=== PATIENT | female | born 1940 | race Caucasian/White ===

== ENCOUNTER 2018-08-28 10:07 | Emergency (ER) | payer MEDICARE, SELFPAY ==
[2018-08-28 10:08] VITALS: BP 130/68; PULSE 101; RESP 16; TEMP 36.2; O2SAT 93; BMI 45.7
--- NOTE | 2018-08-28 10:49 | ED.VISSUMM ---
- ER Visit Summary Date of Service: 08/28/18 Chief Complaint: [] Generalized weakness diabetes blindness History of Present Illness: The patient is a 78 F [] patient is a resident of [facility] she has the above and other chronic medical conditions, she is basically a full care patient at the nursing center. She got yesterday to her lifelong friend and wanted to check out of the nursing center so she could basically participate in marriage festivities, today the family basically could not manage her because of her generalized whole body weakness she slid out of the bed to her bottom paramedics were called the family could not get her back to the nursing center on there own and paramedics felt she should come to the hospital but the patient has no complaints and simply wants to be sent back to the nursing center she indicates her bed is still therefore her as she was discharged from that facility on a trial basis She has no complaints other than her chronic whole body weakness Physical Examination: [] Pressure is 160/82 she is resting comfortably in the bed her is very confirms a history her vital signs are within normal range blind she has no head neck chest upper lower extremity trauma she is moving all 4 extremities complains of chronic knee pain she indicates she did not injure herself when she slid out of bed her confirms she is at her baseline and again they want no evaluation from the emergency department just assistance getting back to the nursing center, I spoke with the nursing center they are expected her back and they are happy to assume her care Test Results: [] Emergency Department Course and Treatment: [] Treatment Plan: [] Disposition: [] Transfer back to [facility] Impression: [] Generalized whole body weakness, diabetes and blindness This note was generated with [employer] dictation software. It may contain incorrect words, spelling, and punctuation that were not noted in review of the chart prior to signing ED Disposition - Plan for ED Patient: Chief Complaint: Fall Referrals: Abrahan Robins DO [Primary Care Provider] -
--- NOTE | 2018-08-28 10:52 | ED.DCSUM_ITS ---
- ER Visit Summary Date of Service: 08/28/18 Chief Complaint: [] Generalized weakness diabetes blindness History of Present Illness: The patient is a 78 F [] patient is a resident of [facility] she has the above and other chronic medical conditions, she is basically a full care patient at the nursing center. She got yesterday to her lifelong friend and wanted to check out of the nursing center so she could basically participate in marriage festivities, today the family basically could not manage her because of her generalized whole body weakness she slid out of the bed to her bottom paramedics were called the family could not get her back to the nursing center on there own and paramedics felt she should come to the hospital but the patient has no complaints and simply wants to be sent back to the nursing center she indicates her bed is still therefore her as she was discharged from that facility on a trial basis She has no complaints other than her chronic whole body weakness Physical Examination: [] Pressure is 160/82 she is resting comfortably in the bed her is very confirms a history her vital signs are within normal range blind she has no head neck chest upper lower extremity trauma she is moving all 4 extremities complains of chronic knee pain she indicates she did not injure herself when she slid out of bed her confirms she is at her baseline and again they want no evaluation from the emergency department just assistance getting back to the nursing center, I spoke with the nursing center they are expected her back and they are happy to assume her care Test Results: [] Emergency Department Course and Treatment: [] Treatment Plan: [] Disposition: [] Transfer back to [facility] Impression: [] Generalized whole body weakness, diabetes and blindness This note was generated with [employer] dictation software. It may contain incorrect words, spelling, and punctuation that were not noted in review of the chart prior to signing ED Disposition - Plan for ED Patient: Chief Complaint: Fall Referrals: Abrahan Robins DO [Primary Care Provider] -
--- NOTE | 2018-08-28 10:52 | ED.DEP ---
ED Disposition - Plan for ED Patient: Chief Complaint: Fall Instructions: ED Fall Uncertain Cause, ED Mechanical Fall Referrals: Abrahan Robins DO [Primary Care Provider] -
== END 2018-08-28 11:37 | disposition home or self-care (01) ==
PROVIDERS: Emergency Provider Emergency Medicine; Family Provider Preventive Medicine Occupational Medicine; PCP Preventive Medicine Occupational Medicine
DX: R53.1 Weakness (principal); E11.9 Type 2 diabetes mellitus without complications; H54.7 Unspecified visual loss
CPT/HCPCS: 99284

== ENCOUNTER → 2020-01-24 17:37 | Outpatient (REF) | payer MEDICARE, MEDICAID, SELFPAY | LOC: MTDU 17:37 | PROVIDERS: PCP Preventive Medicine Occupational Medicine; Referring Provider Family Medicine; Visit Provider Family Medicine | DX: Z11.59 Encounter for screening for other viral diseases (principal) | CPT/HCPCS: 87635; U0004 ==

== ENCOUNTER → 2020-02-19 16:35 | Outpatient (CLI) | payer MEDICARE, MEDICAID, SELFPAY | PROVIDERS: PCP Preventive Medicine Occupational Medicine; Referring Provider Family Medicine; Visit Provider Family Medicine | DX: J98.8 Other specified respiratory disorders (principal) | CPT/HCPCS: 87635; U0004 ==

== ENCOUNTER 2020-02-21 23:47 | Emergency (ER) | payer MEDICARE, MEDICAID, SELFPAY ==
[2020-02-21 23:49] VITALS: BP 122/77; PULSE 99; RESP 13; TEMP 35.9; O2SAT 97; BMI 39.2
[2020-02-22 00:17] LABS: Absolute Lymphocyte Count 1.69 X10^3/uL (0.83-4.51); Absolute Neutrophil Count 3.5 X10^3/uL (2.0-7.7); Basophil# 0.04 X10^3/uL; Basophil% 0.6 % (0-1); Eosinophil# 0.69 X10^3/uL; Eosinophils% 9.8 % (0-5); Hematocrit 44.7 % (37-47); Hemoglobin 14.3 g/dL (12.0-15.0); Lymphocyte # 1.69 X10^3/ul (4.0); Lymphocyte % 24.1 % (19-41); Mean Corpuscular Hgb 30.8 pg (27.0-32.0); Mean Corpuscular Volume 96.3 fL (81-99); Monocyte# 1.04 X10^3/uL; Monocyte% 14.8 % (0-10); NRBC Flagged by Analyzer 0 % (0-5); Neutrophil # 3.54 X10^3/uL (2.7-7.7); Neutrophil % 50.6 % (47-70); Platelet Count 272 K/mm3 (150-450); RBC Distribution Width CV 13.8 % (11.6-14.6); RBC Distribution Width SD 47.8 fl (35.1-43.9); Red Blood Count 4.64 M/mm3 (4.2-5.4)
--- NOTE | 2020-02-22 00:22 | ED.RN ---
CALLED, UPDATE GIVEN TO HIM.
[2020-02-22 00:36] LABS: ALB/GLOB Ratio 0.6 RATIO (0.9-2.4); AST(SGOT) 39 U/L (15-37); Alanine Aminotransfer ALT/SGPT 22 U/L (13-56); Albumin, Serum 3.1 g/dL (3.2-5.0); Alkaline Phosphatase 97 U/L (45-117); Anion Gap 6 (5-15); BUN 80 mg/dL (7-18); Calcium,Total 9.8 mg/dL (8.5-10.1); Chloride 103 mmol/L (98-107); Creatinine, Serum 3.48 mg/dL (0.55-1.02); EST Glomerular Filtration Rate 13 mL/min (>60); Est Glom Filt Rate - Afr Amer 16 mL/min (>60); Estimated Creatinine Clearance 11.32 ml/min; Globulin 5.4 g/dL (2.2-4.2); Glucose 136 mg/dL (74-106); Potassium 5.4 mmol/L (3.5-5.1); Protein, Total 8.5 g/dL (6.4-8.2); Sodium Level 137 mmol/L (136-145)
--- NOTE | 2020-02-22 00:40 | ED.DCSUM_ITS ---
- ER Visit Summary Date of Service: 02/22/20 Chief Complaint: Elevated creatinine History of Present Illness: The patient is a [address] Drew Husain. Patient is a DNR comfort care only. She was diagnosed with COVID-January 29. They deloris blood work today and found that her creatinine was 3.4 her BUN was 80. She does have a history of chronic renal insufficiency and has been on Bumex. They were unable to place an IV at [facility] [place]. Patient denies any complaints. She denies chest pain or shortness of breath. She denies fever or cough. She is resting comfortably. Physical Examination: Vitals: 96.6, 122/77, 99, 13, 97% on room air which is not hypoxic. General: Well-nourished and well-developed. Head: Normocephalic atraumatic. Neck: Supple, no lymphadenopathy. No JVD. Nontender. Cardiovascular: Regular rate and rhythm. 2 out of 6 systolic murmur. Respiratory: No respiratory distress. Clear to auscultation bilaterally. Abdominal: Soft, nontender, nondistended, normal bowel sounds. No guarding, rebound, or peritoneal signs. Back: Nontender. Extremities: Nontender, 1+ edema lower extremities bilaterally. Skin: Normal color, no rash. Neurologic: Alert and oriented ?3. Cranial nerves II through XII are intact. Normal strength and sensation. Psych: Normal affect. Test Results: CBC shows monocytes of 15 and eosinophils of 10. Chem-7 shows a potassium of 5.4 (moderate hemolysis), glucose 136, BUN 80, creatinine at 3.48. Emergency Department Course and Treatment: Patient was given a 500 cc bolus of normal saline. She is resting comfortably and asking when she can go back to [facility] [place]. Treatment Plan: The patient was discussed with her daughter who is power of county attorney. She is happy with the plan of her going back to [facility] [place] IV fluids. She was discussed with Vianney, the nurse practitioner for Dr. Husain, who agrees with this plan. She will write for maintenance fluids there and hold her Bumex. Return to the emergency department for any worsening symptoms. Disposition: To home in improved and stable condition. Impression: 1. Acute renal insufficiency. 2. DNR comfort care only. 3. COVID-19 + January 30, 2020. This note was generated with Dragon dictation software. It may contain incorrect words, spelling, and punctuation that were not noted in review of the chart prio r to signing ED Disposition - Plan for ED Patient: Instructions: ED Insufficiency Renal Referrals: Drew Hammonds MD [Primary Care Provider] - 1-2 Days if not improving
[2020-02-22 00:53] VITALS: BP 117/74; PULSE 100; RESP 16; O2SAT 97
--- NOTE | 2020-02-22 00:54 | ED.RN ---
DR HERNANDEZ SPOKE WITH DTR DAFNE WITH UPDATE ON PT.
== END 2020-02-22 01:18 ==
LOC: ED 02-22 00:23
PROVIDERS: Emergency Provider Emergency Medicine; PCP Family Medicine
DX: E11.22 Type 2 diabetes mellitus with diabetic chronic kidney disease (principal); N18.9 Chronic kidney disease, unspecified; U07.1 COVID-19; I25.10 Atherosclerotic heart disease of native coronary artery without angina pectoris; E78.00 Pure hypercholesterolemia, unspecified; E86.0 Dehydration; N17.9 Acute kidney failure, unspecified; N39.0 Urinary tract infection, site not specified; F32.9 Major depressive disorder, single episode, unspecified; I11.0 Hypertensive heart disease with heart failure; I50.9 Heart failure, unspecified; Z79.4 Long term (current) use of insulin; Z79.82 Long term (current) use of aspirin; Z66 Do not resuscitate
CPT/HCPCS: 36415; 80053; 81001; 83605; 84484; 85025; 87040; 87077; 87086; 87088; 87186; 93005; 96361; 96365; 96366; 99285; J7030; J7040; A4216

== ENCOUNTER 2020-02-22 10:10 | Emergency (ER) | payer MEDICARE, MEDICAID, SELFPAY ==
[2020-02-21 23:49] VITALS: BMI 39.2
[2020-02-22 10:11] VITALS: BP 144/69; PULSE 93; RESP 24; TEMP 36; O2SAT 94; BMI 39.2
--- NOTE | 2020-02-22 10:23 | EKG12_ITS ---
Test Reason : Blood Pressure : / mmHG Vent. Rate : 093 BPM Atrial Rate : 093 BPM P-R Int : 140 ms QRS Dur : 120 ms QT Int : 400 ms P-R-T Axes : 063 017 176 degrees QTc Int : 497 ms Normal sinus rhythm ST & T wave abnormality, consider inferior ischemia Abnormal ECG Confirmed by JEFERSON VELEZ ([id number]), editorial specialist PAM CARNEY ([id number]) on 02/26/2020 1:20:32 PM Referred By: SUMAN/FAWN Confirmed By:JEFERSON VELEZ
--- NOTE | 2020-02-22 10:29 | ED.VISSUMM ---
- ER Visit Summary Date of Service: 02/22/20 Chief Complaint: Dehydration and bilateral ankle pain History of Present Illness: The patient is a 79 F who presents with dehydration and bilateral ankle pain that began yesterday. Patient was seen here yesterday for an elevated BUN and creatinine. Patient was given IV fluids and was discharged back to [facility] [place] with IV fluids in place. The IV infiltrated and [facility] [place] was unable to place another IV. Patient was diagnosed with COVID-19 on 01/29. Patient is DNR comfort care only. Patient does complain of bilateral ankle pain. Patient describes it as aching. Patient states it is worse with movement. Patient denies any trauma or injuries. Physical Examination: Vital signs are stable except for mild tachypnea of 24. Patient is afebrile. Patient is in no acute distress. Pupils are equal, round, and reactive to light bilaterally. Extraocular muscles are intact. Neck is supple. Trachea is midline. There is no JVD. Heart was regular rate and rhythm. Lungs are diminished bilaterally. There is limited respiratory effort. Abdomen is soft. Bowel sounds are normal. There is no tenderness. Extremities are intact. There is no calf tenderness or edema. There is no edema or ecchymosis of the ankles. Pedal pulses are equal bilaterally. Cranial nerves II through XII are grossly intact. There are no focal motor or sensory deficits noted. Test Results: EKG showed a normal sinus rhythm with a rate of 93. There are nonspecific ST-T wave changes. There are no peaked T waves. There are no prior EKGs available for comparison. CBC was within normal limits. Basic metabolic profile showed a slightly elevated potassium of 5.4. BUN was 74 and creatinine was 3.02. This was improved from yesterday. Troponin was normal. Urinalysis showed leukocyte esterase of 500 with greater than 100 white blood cells. Urine culture was ordered. Lactate was normal. Emergency Department Course and Treatment: Patient was given IV fluids here. Patient was given a dose of Rocephin here. Case was discussed with Dr. Hammonds. He is agreeable to discharging the patient back to the extended care facility where he can continue IV fluids and antibiotics for the urinary tract infection. He states he will recheck a BMP tomorrow. Patient was also given a prescription for Keflex. Patient was given a dose of Kayexalate prior to discharge. Disposition: Discharge to [facility] Impression: 1. Acute kidney injury 2. Urinary tract infection This note was generated with [employer] dictation software. It may contain incorrect words, spelling, and punctuation that were not noted in review of the chart prior to signing ED Disposition - Plan for ED Patient: Disposition: Home or Assisted Living Diagnosis: Acute kidney injury, Urinary tract infection Instructions: ED CYSTITIS Female Adult Prescriptions: Cephalexin [Keflex] 500 mg PO Q6 #20 cap Prescription Printed Referrals: Drew Hammonds MD [Primary Care Provider] - 3-5 Days
[2020-02-22 10:37] VITALS: BP 141/71; PULSE 92; RESP 25; TEMP 36; O2SAT 97
[2020-02-22 10:38] VITALS: BP 141/71; PULSE 92; RESP 25; TEMP 36; O2SAT 97
[2020-02-22 10:46] LABS: Absolute Lymphocyte Count 1.87 X10^3/uL (0.83-4.51); Absolute Neutrophil Count 4.1 X10^3/uL (2.0-7.7); Basophil# 0.03 X10^3/uL; Basophil% 0.4 % (0-1); Eosinophil# 0.46 X10^3/uL; Eosinophils% 6.2 % (0-5); Hematocrit 41.3 % (37-47); Hemoglobin 13.6 g/dL (12.0-15.0); Lymphocyte # 1.87 X10^3/ul (4.0); Lymphocyte % 25.3 % (19-41); Mean Corp Hgb Conc 32.9 g/dL (32-36); Mean Corpuscular Hgb 31.5 pg (27.0-32.0); Mean Corpuscular Volume 95.6 fL (81-99); Mean Platelet Vol. 11.2 fl (6.2-12.0); Monocyte# 0.92 X10^3/uL; Monocyte% 12.5 % (0-10); NRBC Flagged by Analyzer 0 % (0-5); Neutrophil # 4.09 X10^3/uL (2.7-7.7); Neutrophil % 55.5 % (47-70); Platelet Count 259 K/mm3 (150-450); RBC Distribution Width CV 13.8 % (11.6-14.6); RBC Distribution Width SD 46.7 fl (35.1-43.9); Red Blood Count 4.32 M/mm3 (4.2-5.4); White Blood Count 7.4 K/mm3 (4.4-11.0)
[2020-02-22] MEDS: 0.9% Normal Saline 1,000 ML 1000 ML IV (10:47)
[2020-02-22 11:03] LABS: ALB/GLOB Ratio 0.6 RATIO (0.9-2.4); AST(SGOT) 40 U/L (15-37); Alanine Aminotransfer ALT/SGPT 23 U/L (13-56); Albumin, Serum 2.9 g/dL (3.2-5.0); Alkaline Phosphatase 94 U/L (45-117); Anion Gap 8 (5-15); BUN 74 mg/dL (7-18); BUN/Creat Ratio 24.5 RATIO (10-20); Calcium,Total 9.4 mg/dL (8.5-10.1); Chloride 106 mmol/L (98-107); Creatinine, Serum 3.02 mg/dL (0.55-1.02); EST Glomerular Filtration Rate 16 mL/min (>60); Est Glom Filt Rate - Afr Amer 19 mL/min (>60); Estimated Creatinine Clearance 13.04 ml/min; Globulin 5.2 g/dL (2.2-4.2); Glucose 116 mg/dL (74-106); Potassium 5.4 mmol/L (3.5-5.1); Protein, Total 8.1 g/dL (6.4-8.2); Sodium Level 136 mmol/L (136-145)
[2020-02-22 11:03] LABS: Bacteria 0 SEEN /hpf (None Seen); Mucous, Urine 0 SEEN /hpf (<or=2+); Red Blood Cells-Urine 0 SEEN /hpf (0-5); Squamous Epithelial Cells - UA 0 SEEN /hpf (5-10)
[2020-02-22 11:06] LABS: Color, Urine Yellow (Yellow); Glucose, Dipstick Normal (Normal); Ketone-Dipstick 5 mg/dl (Negative); Leukocyte Esterase-Dipstick 500 /ul (Negative); Nitrite-Dipstick Negative (Negative); Occult Blood-Urine 250 /ul (Negative); Protein-Dipstick 100 mg/dl (Negative); Specific Gravity, Urine 1.015 (1.002-1.030); Urine Bilirubin Dipstick Negative (Negative); Urine Clarity Cloudy (Clear); Urine Urobilinogen Normal (Normal)
[2020-02-22 11:09] LABS: Lactic Acid 1.1 mmol/L (0.4-1.9)
[2020-02-22 11:13] LABS: White Blood Cells >100 SEEN /hpf (0-5)
[2020-02-22 12:15] VITALS: BP 122/64; PULSE 94; RESP 22; TEMP 36.2; O2SAT 98
[2020-02-22] MEDS: Ceftriaxone 1 GM/50 ML BAG IV (12:15)
[2020-02-22] MEDS: 0.9% Normal Saline 1,000 ML 250 ML IV (12:23)
[2020-02-22] MEDS: Sodium Polystyrene Sulfonate 15 GM/60 ML UDC PO (14:03)
[2020-02-22 14:04] VITALS: BP 117/84; PULSE 71; RESP 22; O2SAT 97
--- NOTE | 2020-02-22 14:05 | ED.RN ---
THIS NURSE GAVE REPORT TO [facility] AND NURSE AT [facility]. THIS NURSE ASSISTED TO MOVE PT TO EMS COT. PER DR PINA, LEAVE IV IN.
== END 2020-02-22 14:06 | disposition home or self-care (01) ==
PROVIDERS: Emergency Provider Emergency Medicine; PCP Family Medicine
DX: N17.9 Acute kidney failure, unspecified (principal); N39.0 Urinary tract infection, site not specified; I25.10 Atherosclerotic heart disease of native coronary artery without angina pectoris; E11.9 Type 2 diabetes mellitus without complications; E78.00 Pure hypercholesterolemia, unspecified; F32.9 Major depressive disorder, single episode, unspecified; I11.0 Hypertensive heart disease with heart failure; I50.9 Heart failure, unspecified; Z66 Do not resuscitate; Z79.4 Long term (current) use of insulin; Z79.82 Long term (current) use of aspirin
CPT/HCPCS: 36415; 80053; 81001; 83605; 84484; 85025; 87040; 87077; 87086; 87088; 87186; 93005; 96361; 96365; 96366; 99285; J7030

== ENCOUNTER → 2020-03-01 12:59 | Outpatient (CLI) | payer MEDICARE, MEDICAID, SELFPAY ==
[2020-02-22 10:11] VITALS: BMI 39.2
== END ==
PROVIDERS: PCP Family Medicine; Referring Provider Nurse Practitioner Adult Health; Visit Provider Nurse Practitioner Adult Health
DX: J98.8 Other specified respiratory disorders (principal)
CPT/HCPCS: 87635; U0004

== ENCOUNTER 2021-03-02 15:25 | Inpatient (IN) | payer MEDICARE, MEDICAID, SELFPAY ==
[2021-03-02] VITALS (8 sets, daily range): BP systolic 134–187; BP diastolic 54–160; PULSE 89–100; RESP 2–199; TEMP 37–37.2; O2SAT 95–99; BMI 38.2; BMI 37.1
--- NOTE | 2021-03-02 15:35 | CT_ITS ---
STUDY: CT ABDOMEN AND PELVIS WITHOUT CONTRAST REASON FOR EXAM: Female, 80 years old. abdominal pain RADIATION DOSAGE (If Supplied By Facility): CTDIvol = ( 22.96 ) mGy, DLP = ( 1342.20 ) mGycm TECHNIQUE: Transaxial images were obtained from the dome of the diaphragm to the symphysis pubis without oral contrast, and without intravenous contrast. Sagittal and coronal images were reconstructed. Individualized dose optimization techniques were used for this CT. COMPARISON: None. FINDINGS: There are granulomata of the bilateral lung bases. The visualized portions of the heart are within normal limits. Normal liver. Normal gallbladder and extrahepatic biliary system. Normal spleen. There is diffuse atrophy of the pancreas. Normal bilateral adrenal glands. No hydronephrosis. Left renal calculi measuring up to 1.4 cm. Moderate fluid and air distention of the stomach. Normal small intestine. There are multiple colonic diverticula consistent with diverticulosis. There is non-visualization of the appendix. There is diffuse atherosclerotic calcification of the abdominal aorta with elongation and tortuosity, but without a demonstrated aneurysm. Normal inferior vena cava. Normal retroperitoneum. Nondistended urinary bladder. Circumferential bladder wall thickening with pericystic induration. 8 mm calculus of the left UVJ. Normal abdominal wall. There are diffuse degenerative changes of the visualized lumbar spine and bilateral hips. CT/Abdomen/Pelvis without Cont IMPRESSION: 1. Urinary bladder nondistention with pericystic induration suggesting possibility of cystitis. Recommend correlating with urinalysis. 2. Gastric and fluid distention of the stomach with suspected gastroesophageal reflux. Patient may benefit from esophagogastric tube/gastric decompression. 3. 8 mm left UVJ calculus. No hydronephrosis. 4. Left nephrolithiasis. Electronically Signed: Ihsan Drew MD (Brooks) at 16:57 EDT , Service support ,
--- NOTE | 2021-03-02 15:38 | EDS_ITS ---
HPI HPI - GI History of Present Illness Chief Complaint: GI Bleed Detail of Chief Complaint: Concern for upper GI bleed today Informant: patient, spouse/S.O. and EMS Nausea/Vomiting/Emesis GI Symptom: Positive for Nausea and Vomiting Narrative Narrative: Patient presents to the emergency department via EMS from extended care facility. Patient apparently had several episodes of vomiting throughout the day yesterday. Today she had been doing well throughout the day until she had an episode of vomiting this afternoon that look like coffee ground emesis with possible blood clot noted. Patient denies any abdominal pain currently. She has had no diarrhea. She denies any fever. Patient is blind. Patient does not have history of ulcers. She has had prior four-vessel CABG but denies any chest pain currently. Patient denies urinary symptoms. Patient did have COVID- 19 last year and has also since been immunized with both vaccines. Patient not currently anticoagulated. Prior similar symptoms: No PFSH PFSH Medical History (Updated 03/02/21 @ 18:[address] Lauren العراقي, DO) Anxiety Blindness of both eyes Chest pain Congestive heart failure (CHF) Coronary artery disease Depression Diabetes GERD (gastroesophageal reflux disease) Hypertension Home Medications aspirin 81 mg PO DAILY 02/21/20 [History Last Taken Unknown] brimonidine 1 drp EACH EYE BID 02/21/20 [History Last Taken Unknown] bumetanide 1.5 mg PO DAILY 02/21/20 [History Last Taken Unknown] buspirone 0.5 tab PO BID 02/21/20 [History Last Taken Unknown] cephalexin 500 mg PO BID 02/21/20 [History Last Taken Unknown] insulin lispro 0 unit SUBCUT TID 02/21/20 [History Last Taken Unknown] venlafaxine 150 mg PO DAILY 02/21/20 [History Last Taken Unknown] ascorbic acid (vitamin C) 1,000 mg PO DAILY 02/22/20 [History Last Taken Unknown] atorvastatin 20 mg PO QHS 02/22/20 [History Last Taken Unknown] cephalexin 500 mg PO Q6 #20 cap 02/22/20 [Rx Last Taken Unknown] escitalopram oxalate 5 mg PO QHS 02/22/20 [History Last Taken Unknown] insulin detemir U-100 40 unit SQ QHS 02/22/20 [History Last Taken Unknown] loratadine 10 mg PO DAILY 05/14/20 [History Last Taken Unknown] lorazepam 0.5 mg PO BID 02/22/20 [History Last Taken Unknown] zinc 50 mg PO DAILY 02/22/20 [History Last Taken Unknown] Allergy/AdvReac Type Severity Reaction Status Date / Time Penicillins Allergy Unknown Verified 03/02/21 15:30 Sulfa (Sulfonamide Allergy Unknown Verified 03/02/21 15:30 Antibiotics) Social History Smoking Status: Unknown if ever smoked ROS ROS ED Constitutional Constitutional ED: Reports systems reviewed and no addt'l complaints, except as documented; Denies body ache(s), change in weight or chills Eyes Eyes: Denies acute decrease in peripheral vision, change in vision, double vision or loss of vision ENT ENT ED: Reports none; Denies ear pain, lip swelling, loss taste/smell, neck pain, otalgia or sore throat Cardiovascular Cardiovascular: Reports none; Denies abdominal pain, chest pain with activity, leg edema, lightheadedness, palpitations, rapid heart rate or syncope Respiratory/Chest Respiratory/Chest: Reports none; Denies change in mental status, dry cough, dyspnea, hemoptysis, shortness of breath at rest or shortness of breath with exertion Gastrointestinal Gastrointestinal: Reports none, nausea, vomiting and other Details: Patient with coffee ground colored emesis ; Denies abdominal pain, change in stool character, diarrhea, hematemesis, hematochezia, melena or rectal bleeding Genitourinary Genitourinary ED: Reports none; Denies abdominal discomfort, anuria, dysuria, genital pain or polyuria Musculoskeletal Musculoskeletal: Reports none; Denies arthralgias, back pain, difficulty walking, extremity pain, muscle weakness or myalgias Integumentary Reports none; Denies abscess or rash Neurologic Neurologic: Reports none; Denies abnormal gait, confusion, focal weakness, frequent falls, headache(s), loss of vision, numbness, paresthesias, radicular pain, vertigo or weakness Psychiatric Psychiatric: Reports systems reviewed and no addt'l complaints, except as documented and none; Denies behavioral changes, confusion, difficulty concentrating, hallucinations, suicidal ideation, tactile hallucinations or visual hallucinations Endocrine Endocrinology: Denies none, cold intolerance, excessive sweating, fatigue or heat intolerance Hematologic/Lymphatic Hematologic/Lymphatic: Reports none; Denies anemia, easy bleeding or easy bruising Allergic/Immunologic Allergic/Immunologic ED: Denies as per HPI, none, lip swelling, mouth swelling, throat swelling, tongue swelling or hives EXAM Physical Exam Const Vital Signs: 03/02/21 15:26 03/02/21 15:30 03/02/21 16:33 Temperature 98.6 F 98.6 F 98.6 F Temperature Source Temporal Temporal Temporal Pulse Rate 92 92 92 Respiratory Rate 18 18 199 H Respiratory Pattern Blood Pressure 174/85 H 174/85 H 187/160 H Blood Pressure Mean 114 114 169 Pulse Ox 96 96 Oxygen Delivery Method Room Air Room Air 03/02/21 17:19 03/02/21 17:57 Temperature Temperature Source Pulse Rate 89 100 Respiratory Rate 24 H 2 L Respiratory Pattern Tachypnea Blood Pressure 154/74 H Blood Pressure Mean 100 Pulse Ox 99 Oxygen Delivery Method Room Air Positive well nourished and well developed General Appearance ED: well developed and NAD HEENT Reports TM's clear and moist mucous membranes normocephalic and atraumatic; Negative for trauma or tenderness Tympanic Membrane ED: Yes TM's clear Eyes PERRL and EOMs intact bilaterally General Eye ED: Negative for pale conjunctiva or scleral icterus Neck no lymphadenopathy, supple and no JVD General: Negative for tenderness Chest Wall inspection of chest normal and palpation of chest normal Chest: Negative for tenderness Resp normal respiratory effort and clear to auscultation bilaterally Effort and Inspection: Negative for respiratory distress or pain with movement Auscultation: Negative for rhonchi, wheezes or diminished lung sounds Cardio regular rate, regular rhythm, S1 normal heart sound, S2 normal heart sound and n o murmurs Peripheral Pulses: pulses 2+ throughout GI normal to inspection, nondistended, normoactive bowel sounds, soft to palpation, non-distended and no masses; Negative for non-tender Inspection: Negative for abdominal distention Palpation: soft and tender LLQ, RLQ, LUQ and RUQ Back/Spine no CVA tenderness and no thoracic nor lumbar tenderness Extremity normal to inspection General Extremety ED: Negative for edema General Extremity: Negative for edema Neuro oriented x3, CN's II-XII intact bilaterally, no sensory deficits noted and gait normal Sensorium / Orientation: awake, alert, oriented to person, oriented to place and oriented to time Motor Exam: strength 5/5 throughout and strength abnormal Psych mental status grossly normal Skin no rashes or lesions noted and no wounds MDM MDM MDM Narrative Medical decision making narrative: Patient case discussed with general surgeon who recommended NG tube. Initially nurses attempted and they were unsuccessful. Patient initially refused to allow me to attempt the NG tube again and I explained to her that it would be extremely beneficial and was part of her treatment and recommended that we perform the NG tube placement eventually she agreed to allow me to try. I was able to successfully place the NG tube to low intermittent suction and black to brown material was suctioned out of her stomach. Patient will be admitted for the gastroparesis and also the left UVJ stone. I did discuss case with Dr. Lan Davila who will see patient in consultation. Case will be discussed with hospitalist. Lab Data Attestation: I reviewed the patient's lab results. Labs: Laboratory Results - last 24 hr 03/02/21 03/02/21 03/02/21 16:10 16:10 16:10 WBC 11.6 H RBC 4.12 L Hgb 12.7 Hct 39.8 MCV 96.6 MCH 30.8 MCHC 31.9 L RDW Std Deviation 45.6 H RDW Coeff of Koki 12.8 Plt Count 342 MPV 10.1 Immature Gran % (Auto) 0.300 Neut % (Auto) 65.5 Lymph % (Auto) 18.3 L [place] % (Auto) 5.2 Eos % (Auto) 10.5 H Baso % (Auto) 0.2 Absolute Neuts (auto) 7.6 Absolute Lymphs (auto) 2.12 Nucleated RBC % 0 Sodium 140 Potassium 4.1 Chloride 101 Carbon Dioxide 34.0 H Anion Gap 5 BUN 39 H Creatinine 1.88 H Estim Creat Clear Calc 20.61 Est GFR (MDRD) Af Amer 33 L Est GFR (MDRD) Non-Af 27 L BUN/Creatinine Ratio 20.7 H Glucose 207 H Lactic Acid 1.9 Calcium 9.0 Total Bilirubin 0.60 AST 12 L ALT 18 Alkaline Phosphatase 119 H Troponin I < 0.015 Total Protein 7.5 Albumin 2.9 L Globulin 4.6 H Albumin/Globulin Ratio 0.6 L Lipase 120 Urine Color Urine Clarity Urine pH Ur Specific [place] Urine Protein Urine Glucose (UA) Urine Ketones Urine Occult Blood Urine Nitrite Urine Bilirubin Urine Urobilinogen Ur Leukocyte Esterase Urine RBC Urine WBC Ur Squamous Epith Cells Urine Bacteria Urine Mucus Blood Type Antibody Screen 03/02/21 03/02/21 16:10 16:10 WBC RBC Hgb Hct MCV MCH MCHC RDW Std Deviation RDW Coeff of [place] Plt Count MPV Immature Gran % (Auto) Neut % (Auto) Lymph % (Auto) [place] % (Auto) Eos % (Auto) Baso % (Auto) Absolute Neuts (auto) Absolute Lymphs (auto) Nucleated RBC % Sodium Potassium Chloride Carbon Dioxide Anion Gap BUN Creatinine Estim Creat Clear Calc Est GFR (MDRD) Af Amer Est GFR (MDRD) Non-Af BUN/Creatinine Ratio Glucose Lactic Acid Calcium Total Bilirubin AST ALT Alkaline Phosphatase Troponin I Total Protein Albumin Globulin Albumin/Globulin Ratio Lipase Urine Color Yellow Urine Clarity Cloudy Urine pH 6.0 Ur Specific [place] 1.015 Urine Protein 100 H Urine Glucose (UA) Normal Urine Ketones Negative Urine Occult Blood 150 H Urine Nitrite Negative Urine Bilirubin Negative Urine Urobilinogen Normal Ur Leukocyte Esterase 500 H Urine RBC 0 SEEN Urine WBC >100 SEEN Ur Squamous Epith Cells 0 SEEN Urine Bacteria 0 SEEN Urine Mucus 0 SEEN Blood Type A POSITIVE Antibody Screen NEGATIVE Radiography Diagnostic Testing: Radiology Impression Abdomen/Pelvis CT 03/02/21 15:35 IMPRESSION: 1. Urinary bladder nondistention with pericystic induration suggesting possibility of cystitis. Recommend correlating with urinalysis. 2. Gastric and fluid distention of the stomach with suspected gastroesophageal reflux. Patient may benefit from esophagogastric tube/gastric decompression. 3. 8 mm left UVJ calculus. No hydronephrosis. 4. Left nephrolithiasis. Electronically Signed: Ihsan Drew MD ([place]) at 16:57 EDT , Service support , EKG Initial EKG: Comments: Sinus rhythm with a ventricular rate of [address] changes noted. Critical Care Time Critical Care Time: Yes Critical care time (excluding procedures): Discussing w/Patient &/or Family/Line Inspector, Discussing w/Consultants, Arranging Admission or Transfer, Performing Direct Patient Care at Bedside and - (30 minutes of critical care time) Discharge Plan Dx/Rx/DC Orders Clinical Impression: Diabetic gastroparesis, Acute UTI, Kidney stone Disposition Disposition: [facility]
[2021-03-02] MEDS: Ondansetron 4 MG/2 ML Vial IM (15:54)
[2021-03-02 16:11] LABS: Bacteria 0 SEEN /hpf (None Seen); Mucous, Urine 0 SEEN /hpf (<or=2+); Red Blood Cells-Urine 0 SEEN /hpf (0-5); Squamous Epithelial Cells - UA 0 SEEN /hpf (5-10)
--- NOTE | 2021-03-02 16:11 | EKG12_ITS ---
Test Reason : GI BLEED Blood Pressure : / mmHG Vent. Rate : 091 BPM Atrial Rate : 091 BPM P-R Int : 142 ms QRS Dur : 108 ms QT Int : 400 ms P-R-T Axes : 054 021 115 degrees QTc Int : 492 ms Normal sinus rhythm Nonspecific ST and T wave abnormality Abnormal ECG Confirmed by SAMUEL GIRON, LOUISA ([id number]), editor in chief HARDY CHRISTINE ([id number]) on 03/04/2021 9:46:51 AM Referred By: ANN MARIE Confirmed By:LOUISA BAKER MD
[2021-03-02 16:13] LABS: Color, Urine Yellow (Yellow); Glucose, Dipstick Normal (Normal); Ketone-Dipstick Negative (Negative); Leukocyte Esterase-Dipstick 500 /ul (Negative); Nitrite-Dipstick Negative (Negative); Occult Blood-Urine 150 /ul (Negative); Protein-Dipstick 100 mg/dl (Negative); Specific Gravity, Urine 1.015 (1.002-1.030); Urine Bilirubin Dipstick Negative (Negative); Urine Clarity Cloudy (Clear); Urine Urobilinogen Normal (Normal)
[2021-03-02] MEDS: 0.9% Normal Saline 1,000 ML 125 ML IV (16:13)
[2021-03-02 16:20] LABS: White Blood Cells >100 SEEN /hpf (0-5)
[2021-03-02 16:23] LABS: Absolute Lymphocyte Count 2.12 X10^3/uL (0.83-4.51); Absolute Neutrophil Count 7.6 X10^3/uL (2.0-7.7); Basophil# 0.02 X10^3/uL; Basophil% 0.2 % (0-1); Eosinophil# 1.22 X10^3/uL; Eosinophils% 10.5 % (0-5); Hematocrit 39.8 % (37-47); Hemoglobin 12.7 g/dL (12.0-15.0); Lymphocyte # 2.12 X10^3/ul (0.83-4.51); Lymphocyte % 18.3 % (19-41); Mean Corp Hgb Conc 31.9 g/dL (32-36); Mean Corpuscular Hgb 30.8 pg (27.0-32.0); Mean Corpuscular Volume 96.6 fL (81-99); Mean Platelet Vol. 10.1 fl (6.2-12.0); Monocyte% 5.2 % (0-10); NRBC Flagged by Analyzer 0 % (0-5); Neutrophil # 7.58 X10^3/uL (2.7-7.7); Neutrophil % 65.5 % (47-70); Platelet Count 342 K/mm3 (150-450); RBC Distribution Width CV 12.8 % (11.6-14.6); RBC Distribution Width SD 45.6 fl (35.1-43.9); Red Blood Count 4.12 M/mm3 (4.2-5.4); White Blood Count 11.6 K/mm3 (4.4-11.0)
[2021-03-02 16:45] LABS: ALB/GLOB Ratio 0.6 RATIO (0.9-2.4); AST(SGOT) 12 U/L (15-37); Alanine Aminotransfer ALT/SGPT 18 U/L (13-56); Albumin, Serum 2.9 g/dL (3.2-5.0); Alkaline Phosphatase 119 U/L (45-117); Anion Gap 5 (5-15); BUN 39 mg/dL (7-18); BUN/Creat Ratio 20.7 RATIO (10-20); Chloride 101 mmol/L (98-107); Creatinine, Serum 1.88 mg/dL (0.55-1.02); EST Glomerular Filtration Rate 27 mL/min (>60); Est Glom Filt Rate - Afr Amer 33 mL/min (>60); Estimated Creatinine Clearance 20.61 ml/min; Globulin 4.6 g/dL (2.2-4.2); Glucose 207 mg/dL (74-106); Lipase 120 U/L (73-393); Potassium 4.1 mmol/L (3.5-5.1); Protein, Total 7.5 g/dL (6.4-8.2); Sodium Level 140 mmol/L (136-145)
[2021-03-02 16:47] LABS: Lactic Acid 1.9 mmol/L (0.4-1.9)
[2021-03-02] MEDS: Lidocaine 4% 5 ML Ampul 2 ML INHALATION (17:17)
[2021-03-02] MEDS: Oxymetazoline 0.05% 1 SPRAY SPRAY.BTL 2 SPRAY NASAL (17:30)
[2021-03-02] MEDS: Ceftriaxone 1 GM/50 ML BAG IV (17:40)
--- NOTE | 2021-03-02 17:48 | RAD_ITS ---
STUDY: X-RAY - ABDOMEN/PELVIS REASON FOR EXAM: Female, 80 years old. NG tube placement -- KUB with both diaphragms for NG/OG Verification TECHNIQUE: Single AP view of the abdomen / pelvis. COMPARISON: CT abdomen and pelvis 4:34 PM FINDINGS: Normal visualized lung bases. Lower abdomen and pelvis and right abdomen not included within the [id number]. Multiple gas-filled loops of small bowel. Enteric tube is in the stomach. The visualized liver, spleen and kidneys are grossly normal in size and morphology. Normal soft tissue structures. Normal visualized osseous structures. RAD/Abdomen Single View (Portable) IMPRESSION: Ileus. New enteric tube in the stomach with decreased gastric distention. Electronically Signed: Eugene Hedrick MD at 20:44 EDT , Service support ,
--- NOTE | 2021-03-02 18:49 | PCM.CONS.U ---
Assessment & Plan Assessment/Plan (1) Diabetic gastroparesis: PLAN: Currently managed with an NG tube. (2) Acute UTI: PLAN: Started on antibiotics by the emergency room department. (3) Kidney stone: PLAN: She has an obstructing stone in the distal left ureter and also several nonobstructing stones up in the left kidney. My plan would be to keep the patient n.p.o. and will add her to the schedule for tomorrow for cystoscopy and left stent placement. I explained this to her who was by her side and he was agreeable with the plan. I explained to the and the patient why it would not be the most safest option to try to do lithotripsy especially with the concern for possible infection in the urinary system. They were agreeable with this will be admitted and will consent for stent placement of the left side tomorrow I will ask for the operating room some some time during my lunch break hour. HPI Consult Data Date of Consult: 03/02/21 HPI Narrative HPI Narrative: ANNALISE VINCENT, is a 80 F who presents presented to the emergency room department with nausea and vomiting, apparently the patient has been several episodes of nausea and vomiting through the day yesterday. She had some coffee-ground emesis. She is a chronic resident of a care home as she is blind. She has a history of heart disease in the past. CT scan was done for the evaluation which demonstrated an obstructing stone in the distal left ureter fairly large about 8 mm in size she also had a very distended stomach. She also has several nonobstructing stones in the left kidney as well, in the upper pole the left kidney. She denied having any flank pain or kidney pain. [facility] Medical History Anxiety Blindness of both eyes Chest pain Congestive heart failure (CHF) Coronary artery disease Depression Diabetes GERD (gastroesophageal reflux disease) Hypertension Home Medications aspirin 81 mg PO DAILY 02/21/20 [History Last Taken Unknown] brimonidine 1 drp EACH EYE BID 02/21/20 [History Last Taken Unknown] bumetanide 1.5 mg PO DAILY 02/21/20 [History Last Taken Unknown] buspirone 0.5 tab PO BID 02/21/20 [History Last Taken Unknown] cephalexin 500 mg PO BID 02/21/20 [History Last Taken Unknown] insulin lispro 0 unit SUBCUT TID 02/21/20 [History Last Taken Unknown] venlafaxine 150 mg PO DAILY 02/21/20 [History Last Taken Unknown] ascorbic acid (vitamin C) 1,000 mg PO DAILY 02/22/20 [History Last Taken Unknown] atorvastatin 20 mg PO QHS 02/22/20 [History Last Taken Unknown] cephalexin 500 mg PO Q6 #20 cap 02/22/20 [Rx Last Taken Unknown] escitalopram oxalate 5 mg PO QHS 02/22/20 [History Last Taken Unknown] insulin detemir U-100 40 unit SQ QHS 02/22/20 [History Last Taken Unknown] loratadine 10 mg PO DAILY 02/22/20 [History Last Taken Unknown] lorazepam 0.5 mg PO BID 02/22/20 [History Last Taken Unknown] zinc 50 mg PO DAILY 02/22/20 [History Last Taken Unknown] Allergy/AdvReac Type Severity Reaction Status Date / Time Penicillins Allergy Unknown Verified 03/02/21 15:30 Sulfa (Sulfonamide Allergy Unknown Verified 03/02/21 15:30 Antibiotics) Social History Smoking Status: Unknown if ever smoked ROS ROS Narrative 80-year-old female fairly obese eyes both shot blind no acute distress at this point she has an NG tube in her nose. Chest regular rise, abdomen soft obese and benign. Extremities no clubbing cyanosis or edema rest of the review of systems essentially negative. Physical Exam Const alert HEENT normocephalic, head/scalp atraumatic, EAC's normal and TM's normal bilaterally Eyes PERRL and EOMs intact bilaterally Pupil: sluggish Neck no lymphadenopathy, supple and no JVD General: trachea midline Lymph Lymphatic: no lymphadenopathy noted, lymphedema and lymphadenopathy Resp normal respiratory effort, normal air movement and clear to auscultation bilaterally Cardio regular rate, regular rhythm and peripheral pulses 2+ throughout GI soft to palpation, non-tender and non-distended Extremity normal capillary refill and no clubbing, cyanosis or edema General Extremity: no tenderness to palpation of joints or extremities Skin no rashes or lesions noted General Skin Exam: turgor normal Lesions: no lesions Rashes: no rashes Neuro CN's II-XII intact bilaterally Speech: speech normal Motor Exam: strength 5/5 throughout; Negative for general weakness Psych thought process normal, cooperative and affect normal Appearance: appropriate Lab / Micro Data Result Diagrams: 03/02/21 16:10 03/02/21 16:10 Labs: Laboratory Results - last 24 hr 03/02/21 03/02/21 03/02/21 16:10 16:10 16:10 WBC 11.6 H RBC 4.12 L Hgb 12.7 Hct 39.8 MCV 96.6 MCH 30.8 MCHC 31.9 L RDW Std Deviation 45.6 H RDW Coeff of Koki 12.8 Plt Count 342 MPV 10.1 Immature Gran % (Auto) 0.300 Neut % (Auto) 65.5 Lymph % (Auto) 18.3 L [place] % (Auto) 5.2 Eos % (Auto) 10.5 H Baso % (Auto) 0.2 Absolute Neuts (auto) 7.6 Absolute Lymphs (auto) 2.12 Nucleated RBC % 0 Sodium 140 Potassium 4.1 Chloride 101 Carbon Dioxide 34.0 H Anion Gap 5 BUN 39 H Creatinine 1.88 H Estim Creat Clear Calc 20.61 Est GFR (MDRD) Af Amer 33 L Est GFR (MDRD) Non-Af 27 L BUN/Creatinine Ratio 20.7 H Glucose 207 H Lactic Acid 1.9 Calcium 9.0 Total Bilirubin 0.60 AST 12 L ALT 18 Alkaline Phosphatase 119 H Troponin I < 0.015 Total Protein 7.5 Albumin 2.9 L Globulin 4.6 H Albumin/Globulin Ratio 0.6 L Lipase 120 Urine Color Urine Clarity Urine pH Ur Specific [place] Urine Protein Urine Glucose (UA) Urine Ketones Urine Occult Blood Urine Nitrite Urine Bilirubin Urine Urobilinogen Ur Leukocyte Esterase Urine RBC Urine WBC Ur Squamous Epith Cells Urine Bacteria Urine Mucus Blood Type Antibody Screen 03/02/21 03/02/21 16:10 16:10 WBC RBC Hgb Hct MCV MCH MCHC RDW Std Deviation RDW Coeff of Koki Plt Count MPV Immature Gran % (Auto) Neut % (Auto) Lymph % (Auto) [place] % (Auto) Eos % (Auto) Baso % (Auto) Absolute Neuts (auto) Absolute Lymphs (auto) Nucleated RBC % Sodium Potassium Chloride Carbon Dioxide Anion Gap BUN Creatinine Estim Creat Clear Calc Est GFR (MDRD) Af Amer Est GFR (MDRD) Non-Af BUN/Creatinine Ratio Glucose Lactic Acid Calcium Total Bilirubin AST ALT Alkaline Phosphatase Troponin I Total Protein Albumin Globulin Albumin/Globulin Ratio Lipase Urine Color Yellow Urine Clarity Cloudy Urine pH 6.0 Ur Specific [place] 1.015 Urine Protein 100 H Urine Glucose (UA) Normal Urine Ketones Negative Urine Occult Blood 150 H Urine Nitrite Negative Urine Bilirubin Negative Urine Urobilinogen Normal Ur Leukocyte Esterase 500 H Urine RBC 0 SEEN Urine WBC >100 SEEN Ur Squamous Epith Cells 0 SEEN Urine Bacteria 0 SEEN Urine Mucus 0 SEEN Blood Type A POSITIVE Antibody Screen NEGATIVE Micro: Microbiology 03/02/21 18:28 Gastric Occult Blood - Final Vomitus Occult Blood Positive Radiology Impression Abdomen/Pelvis CT 03/02/21 15:35 IMPRESSION: 1. Urinary bladder nondistention with pericystic induration suggesting possibility of cystitis. Recommend correlating with urinalysis. 2. Gastric and fluid distention of the stomach with suspected gastroesophageal reflux. Patient may benefit from esophagogastric tube/gastric decompression. 3. 8 mm left UVJ calculus. No hydronephrosis. 4. Left nephrolithiasis. Electronically Signed: Ihasn Drew MD ([place]) at 16:57 EDT , Service support ,
--- NOTE | 2021-03-02 19:03 | PCM.HP.STD ---
HPI - General HPI Narrative ANNALISE VINCENT, is a 80 F who presented to the emergency department [facility] on 03/02/2021 from [facility] with nausea and vomiting and concern for upper GI bleed. Per discussion with the patient and her she started having some vomiting yesterday afternoon and had 4 emesis yesterday which were greenish-yellow in nature. This morning she had another emesis that was coffee-ground in appearance and possible blood clot in the vomitus and therefore she was transferred to the emergency department for further evaluation. She was doing okay throughout the day today until this afternoon when she had this emesis. She currently only takes aspirin. She has no abdominal pain, diarrhea, constipation, bright red blood per rectum, chest pain, shortness of breath, fever or chills. She has had no dysuria. She has had longstanding diabetes since 1985 and suffers from CKD and blindness related to this. In the emergency department her vital signs were stable and her blood pressures were intermittently hypertensive but she had no hypotensive episodes. She had a mildly elevated white count at 11.6 and a hemoglobin of 12.7 with a platelet count of 342. She had recent lab drawn here on 02/22/2020 where she had a normal white count and hemoglobin of 13.6. She also did appear to be mildly hemoconcentrated at that time as her creatinine was higher than it is at this time. Her BMP showed normal electrolytes BUN of 39 and serum creatinine of 1.8. She had a normal lactic acid. A negative troponin. Her LFTs were within normal limits. And her lipase was 120. Her UA showed protein, occult blood, leuk esterase, greater than 100 white cells per high-power field but no bacteria. She has been on Keflex. Her EKG was unremarkable for acute changes. A noncontrasted CT of her abdomen pelvis was performed and showed bilateral lung base granulomas, normal liver, a one-point centimeter left renal calculus, moderate fluid and air distention of the stomach with normal small intestines and large bowel, diffuse atherosclerotic calcification, circumferential bladder wall thickening and an 8 mm calculus of the left UVJ. The emergency department physician discussed the case both with general surgery and urology. General surgery recommended placing an NG tube which was performed with little output but unfortunately the patient remove the tube during my evaluation and we were unable to replace the NG tube. Urology has plans to do a stent placement tomorrow morning. She was also treated with ceftriaxone and IV fluids. [facility] Medical History Anxiety Blindness of both eyes Chest pain Congestive heart failure (CHF) Coronary artery disease Depression Diabetes GERD (gastroesophageal reflux disease) Hypertension Home Medications aspirin 81 mg PO DAILY 02/21/20 [History Last Taken Unknown] brimonidine 1 drp EACH EYE BID 02/21/20 [History Last Taken Unknown] bumetanide 1.5 mg PO DAILY 02/21/20 [History Last Taken Unknown] buspirone 0.5 tab PO BID 02/21/20 [History Last Taken Unknown] cephalexin 500 mg PO BID 02/21/20 [History Last Taken Unknown] insulin lispro 0 unit SUBCUT TID 02/21/20 [History Last Taken Unknown] venlafaxine 150 mg PO DAILY 02/21/20 [History Last Taken Unknown] ascorbic acid (vitamin C) 1,000 mg PO DAILY 02/22/20 [History Last Taken Unknown] atorvastatin 20 mg PO QHS 02/22/20 [History Last Taken Unknown] cephalexin 500 mg PO Q6 #20 cap 02/22/20 [Rx Last Taken Unknown] escitalopram oxalate 5 mg PO QHS 02/22/20 [History Last Taken Unknown] insulin detemir U-100 40 unit SQ QHS 02/22/20 [History Last Taken Unknown] loratadine 10 mg PO DAILY 02/22/20 [History Last Taken Unknown] lorazepam 0.5 mg PO BID 02/22/20 [History Last Taken Unknown] zinc 50 mg PO DAILY 02/22/20 [History Last Taken Unknown] Allergy/AdvReac Type Severity Reaction Status Date / Time Penicillins Allergy Unknown Verified 03/02/21 15:30 Sulfa (Sulfonamide Allergy Unknown Verified 03/02/21 15:30 Antibiotics) Social History Smoking Status: Unknown if ever smoked ROS Review of Systems ROS Unobtainable: Denies due to encephalopathy, due to endotracheal tube, due to mental condition, due to mental status or other Constitutional Constitutional: Denies anorexia, change in weight, chills, fatigue, fever(s), malaise, night sweats or weakness Eyes Eyes: Reports loss of vision and other Details: Patient suffers from blindness ; Denies change in vision, discharge from eye(s), double vision, erythema or eye pain ENT HEENT: Reports sore throat and other Details: Pharyngitis is related to NG tube ; Denies abnormal hearing, dysphagia, ear pain, epistaxis, headache(s), hearing loss, nasal congestion, nasal discharge, post nasal drip or sinus pressure Cardiovascular Cardiovascular: Denies chest pain, claudication, dyspnea on exertion, edema, lightheadedness, orthopnea, palpitations, paroxysmal nocturnal dyspnea, rapid heart rate or syncope Respiratory/Chest Respiratory/Chest: Denies cough, dyspnea, excessive phlegm production, hemoptysis, productive cough, shortness of breath at rest, shortness of breath with exertion or wheezing Gastrointestinal Gastrointestinal: Reports coffee ground emesis; Denies abdominal pain, constipation, diarrhea, dyspepsia, hematemesis, hematochezia, loose stools, melena, nausea or vomiting Genitourinary Genitourinary: Denies burning urination, difficulty urinating, dysuria, hematuria, nocturia, urinary frequency, urinary hesitancy, urinary incontinence or urinary urgency Musculoskeletal Musculoskeletal: Reports back pain, joint pain and joint stiffness; Denies arthralgias, joint swelling or myalgias Neurologic Neurologic: Reports abnormal gait and other Details: Generalized weakness-patient is no longer ambulatory ; Denies abnormal speech, confusion, disequilibrium, dizziness, focal weakness, headache(s), numbness, paresthesias, seizure-like activity, seizures, syncope, tingling or tremor(s) Psychiatric Psychiatric: Reports anxiety and depression; Denies homicidal ideation or suicidal ideation Endocrine Endocrinology: Denies change in body appearance, cold intolerance, excessive sweating, heat intolerance, polydipsia or polyuria Hematologic/Lymphatic Hematologic/Lymphatic: Denies anemia, easy bleeding, easy bruising or lymphadenopathy Allergic/Immunologic Allergic/Immunologic: Denies rhinitis, hives, eczemia or asthma Vital Signs Vital Signs Vital Signs: 03/02/21 15:26 03/02/21 15:30 03/02/21 16:33 Temperature 98.6 F 98.6 F 98.6 F Temperature Source Temporal Temporal Temporal Pulse Rate 92 92 92 Respiratory Rate 18 18 199 H Respiratory Pattern Blood Pressure 174/85 H 174/85 H 187/160 H Blood Pressure Mean 114 114 169 Pulse Ox 96 96 Oxygen Delivery Method Room Air Room Air 03/02/21 17:19 03/02/21 17:57 03/02/21 18:25 Temperature 98.9 F Temperature Source Temporal Pulse Rate 89 100 90 Respiratory Rate 24 H 2 L 28 H Respiratory Pattern Tachypnea Blood Pressure 154/74 H 134/54 H Blood Pressure Mean 100 80 Pulse Ox 99 Oxygen Delivery Method Room Air Physical Exam Const alert, oriented x3, no apparent distress and well nourished Constitutional Narrative: Obese elderly white female sitting in bed initially NG tube in nares but patient removed during my evaluation, at bedside, patient is cooperative otherwise General Appearance: Negative for uncooperative Orientation / Consciousness: Negative for confused, disoriented or lethargic HEENT normocephalic, head/scalp atraumatic, hearing grossly normal bilaterally, moist oral mucous membranes and oropharynx normal HEENT Narrative: Edentulous Mouth: oral and palatal mucosa normal Neck no lymphadenopathy, supple, no JVD and no carotid bruits Resp normal respiratory effort, no retractions, no use of accessory muscles and clear to auscultation bilaterally Auscultation: Negative for crackles, rales, rhonchi or wheezes Cardio regular rate, regular rhythm, S1 normal heart sound, S2 normal heart sound, no murmurs, no rub, no gallops, no clicks and no JVD GI normal to inspection, nondistended, normoactive bowel sounds, soft to palpation, non-tender and non-distended; Negative for hepatosplenomegaly Auscultation: Negative for hyperactive bowel sounds or hypoactive bowel sounds Palpation: Negative for tender, guarding or hernia Extremity normal to inspection, full ROM and no clubbing, cyanosis or edema Peripheral Pulses: Yes pulses 2+ throughout Skin no rashes or lesions noted, no wounds, skin turgor normal, no jaundice, no petechiae and no mottling Neuro oriented x3, CN's II-XII intact bilaterally, moves all extremities and no focal motor deficits Sensorium / Orientation: awake, alert, oriented to person, oriented to place and oriented to time Speech: speech normal Psych Psych Narrative: Affect is flat mood appears slightly depressed Mood & Affect: depressed; Negative for anxious Lab / Micro Data Attestation: I reviewed the patient's lab results. Result Diagrams: 03/02/21 16:10 03/02/21 16:10 Labs: Laboratory Results - last 24 hr 03/02/21 03/02/21 03/02/21 16:10 16:10 16:10 WBC 11.6 H RBC 4.12 L Hgb 12.7 Hct 39.8 MCV 96.6 MCH 30.8 MCHC 31.9 L RDW Std Deviation 45.6 H RDW Coeff of Koki 12.8 Plt Count 342 MPV 10.1 Immature Gran % (Auto) 0.300 Neut % (Auto) 65.5 Lymph % (Auto) 18.3 L Cata[place] % (Auto) 5.2 Eos % (Auto) 10.5 H Baso % (Auto) 0.2 Absolute Neuts (auto) 7.6 Absolute Lymphs (auto) 2.12 Nucleated RBC % 0 Sodium 140 Potassium 4.1 Chloride 101 Carbon Dioxide 34.0 H Anion Gap 5 BUN 39 H Creatinine 1.88 H Estim Creat Clear Calc 20.61 Est GFR (MDRD) Af Amer 33 L Est GFR (MDRD) Non-Af 27 L BUN/Creatinine Ratio 20.7 H Glucose 207 H Lactic Acid 1.9 Calcium 9.0 Total Bilirubin 0.60 AST 12 L ALT 18 Alkaline Phosphatase 119 H Troponin I < 0.015 Total Protein 7.5 Albumin 2.9 L Globulin 4.6 H Albumin/Globulin Ratio 0.6 L Lipase 120 Urine Color Urine Clarity Urine pH Ur Specific [place] Urine Protein Urine Glucose (UA) Urine Ketones Urine Occult Blood Urine Nitrite Urine Bilirubin Urine Urobilinogen Ur Leukocyte Esterase Urine RBC Urine WBC Ur Squamous Epith Cells Urine Bacteria Urine Mucus Blood Type Antibody Screen 03/02/21 03/02/21 16:10 16:10 WBC RBC Hgb Hct MCV MCH MCHC RDW Std Deviation RDW Coeff of Koki Plt Count MPV Immature Gran % (Auto) Neut % (Auto) Lymph % (Auto) Cata[place] % (Auto) Eos % (Auto) Baso % (Auto) Absolute Neuts (auto) Absolute Lymphs (auto) Nucleated RBC % Sodium Potassium Chloride Carbon Dioxide Anion Gap BUN Creatinine Estim Creat Clear Calc Est GFR (MDRD) Af Amer Est GFR (MDRD) Non-Af BUN/Creatinine Ratio Glucose Lactic Acid Calcium Total Bilirubin AST ALT Alkaline Phosphatase Troponin I Total Protein Albumin Globulin Albumin/Globulin Ratio Lipase Urine Color Yellow Urine Clarity Cloudy Urine pH 6.0 Ur Specific [place] 1.015 Urine Protein 100 H Urine Glucose (UA) Normal Urine Ketones Negative Urine Occult Blood 150 H Urine Nitrite Negative Urine Bilirubin Negative Urine Urobilinogen Normal Ur Leukocyte Esterase 500 H Urine RBC 0 SEEN Urine WBC >100 SEEN Ur Squamous Epith Cells 0 SEEN Urine Bacteria 0 SEEN Urine Mucus 0 SEEN Blood Type A POSITIVE Antibody Screen NEGATIVE Micro: Microbiology 03/02/21 18:28 Gastric Occult Blood - Final Vomitus Occult Blood Positive Radiology Impression Abdomen/Pelvis CT 03/02/21 15:35 IMPRESSION: 1. Urinary bladder nondistention with pericystic induration suggesting possibility of cystitis. Recommend correlating with urinalysis. 2. Gastric and fluid distention of the stomach with suspected gastroesophageal reflux. Patient may benefit from esophagogastric tube/gastric decompression. 3. 8 mm left UVJ calculus. No hydronephrosis. 4. Left nephrolithiasis. 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 -IV fluids -Gastric emptying study once patient is more clinically stable Concern for upper GI bleed -Hemoglobin stable -Patient is hemodynamically stable -Gastroccult pending -H&H q. 4 hours x 2 -Hold aspirin -General surgery is consulted UTI -Ceftriaxone 2 g daily -Urine cultures pending Left UVJ nephrolithiasis -Plan for stent placement in a.m. 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 -BGT every 6 hours CAD/HTN/HPL -Hold p.o. meds -Monitor blood pressure -As needed hydralazine 10 mg every 6 hours for systolic greater than 160 Blindness -Chronic -Secondary to but diabetes Depression/anxiety -Hold p.o. meds while patient is n.p.o. -IV Ativan is available as patient takes Ativan at baseline 0.5 mg p.o. twice daily DVT prophylaxis -SCDs Visit Charges Inpatient E&M: 77825 Init Hosp L3
[2021-03-02 19:15] LABS: International Normalized Ratio 1.1; Prothrombin Time (Protime)PT. 13.1 SECONDS (11.7-14.9)
[2021-03-02 20:16] LABS: Hematocrit 36.5 % (37-47); Hemoglobin 11.7 g/dL (12.0-15.0)
[2021-03-02] MEDS: 0.9% Normal Saline 1,000 ML 75 ML IV (20:32)
--- NOTE | 2021-03-02 20:57 | CON.PCM_ITS ---
Consult Date of Consult: 03/02/21 Chief Complaint: nausea and emesis, hematemesis History of Present Illness: 80 y/o diabetic WF presents with hematemesis. Resident of [facility] and noted to have coffee grounds emesis and persistent nausea/emesis. She refuses placement of NG tube in the ED/hospital She has diabetic gastroparesis Hgb is 12.7 with normal platelet count. She denies abdominal pain at this point in time. 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 kidney stones/acute UTI at present history of CHF hypertension Medications: aspirin bumetanide brimonidine atorvastatin vitamins escitalopram insulin loratadine venlafaxine zinc Allergies: penicillins, sulfa Social history: TOB use denies resident of [facility] Review of Systems: General - denies fevers Cardiovascular denies chest pain Pulmonary denies shortness of breath, denies coughing up blood Gastrointestinal as per HPI Neurological denies seizures Genitourinary denies burning with urination Hematological denies spontaneous/prolonged bleeding Skin denies rashes Musculoskeletal has some back pain Endocrine has diabetes Psychological denies hallucinations Physical examination: Vital signs Temp 97.8F HR 88 RR 16 BP 104/71 General WD/WN elderly WF in no apparent distress, alert and oriented, not septic appearing HEENT Normocephalic. EOM intact with sclera clear and no icterus noted. Neck is supple with no jugular venous distention noted. Trachea is midline. Lungs . normal respiratory excursion, no adventitial sounds noted No labored breathing noted, such as retractions. No cough heard. Heart regular. Abdomen soft and benign. Extremities no pitting edema noted. Genitourinary/Rectal deferred Skin no rashes noted. Normal skin integrity. Neurological non focal Psychological normal affect, patient is calm and appropriate Impression: UGIB Discussion/Plan: I have discussed the above with the patient. I have offered the patient the procedure of EGD, possible biopsies. I have explained the procedure to the patient. I have counseled the patient as to the risks of the procedure, including but not limited to: infection, bleeding, perforation of the GI tract, inability to complete the procedure, complications of anesthesia, aspiration, etc - she understands. She wishes to proceed. Will plan for this procedure tomorrow.
[2021-03-02] MEDS: BRIMONIDINE 0.2% 5ML BOTTLE 1 DRP EACH EYE (21:43)
[2021-03-02 21:51] LABS: Bedside Glucose 310 mg/dL (70-110)
[2021-03-02 23:26] LABS: Hematocrit 38.3 % (37-47); Hemoglobin 12.3 g/dL (12.0-15.0)
[2021-03-02] MEDS: Metoclopramide 10 MG/2 ML Vial 2.5 MG IV (23:56)
[2021-03-03] VITALS (21 sets, daily range): BP systolic 103–164; BP diastolic 49–88; PULSE 83–101; RESP 16–20; TEMP 36.2–36.9; O2SAT 92–98; BMI 37.1
[2021-03-03 00:06] LABS: Bedside Glucose 283 mg/dL (70-110)
--- NOTE | 2021-03-03 05:55 | EKG12_ITS ---
Test Reason : PRE-OP Blood Pressure : / mmHG Vent. Rate : 105 BPM Atrial Rate : 105 BPM P-R Int : 146 ms QRS Dur : 112 ms QT Int : 372 ms P-R-T Axes : 054 018 133 degrees QTc Int : [address] & T wave abnormality, consider lateral ischemia Abnormal ECG When compared with ECG of 02-MAR-2021 16:11, MANUAL COMPARISON REQUIRED, DATA IS UNCONFIRMED Confirmed by SAMUEL GIRON, LOUISA ([id number]), department editor HARDY CHRISTINE ([id number]) on 03/06/2021 11:22:42 AM Referred By: DR HERNANDEZ Confirmed By:LOUISA BAKER MD
[2021-03-03] MEDS: Insulin Lispro 100 UNIT/ML INSULN.PEN SC ×2 (05:59→16:24)
[2021-03-03 06:00] LABS: Bedside Glucose 326 mg/dL (70-110)
[2021-03-03 06:45] LABS: Absolute Lymphocyte Count 1.88 X10^3/uL (0.83-4.51); Absolute Neutrophil Count 10.2 X10^3/uL (2.0-7.7); Basophil# 0.02 X10^3/uL; Basophil% 0.2 % (0-1); Eosinophil# 0.08 X10^3/uL; Eosinophils% 0.6 % (0-5); Hematocrit 39.8 % (37-47); Hemoglobin 12.8 g/dL (12.0-15.0); Lymphocyte # 1.88 X10^3/ul (0.83-4.51); Lymphocyte % 14.5 % (19-41); Mean Corp Hgb Conc 32.2 g/dL (32-36); Mean Corpuscular Hgb 30.8 pg (27.0-32.0); Mean Corpuscular Volume 95.9 fL (81-99); Mean Platelet Vol. 10.5 fl (6.2-12.0); Monocyte# 0.77 X10^3/uL; Monocyte% 5.9 % (0-10); NRBC Flagged by Analyzer 0 % (0-5); Neutrophil # 10.16 X10^3/uL (2.7-7.7); Neutrophil % 78.3 % (47-70); Platelet Count 325 K/mm3 (150-450); RBC Distribution Width CV 12.6 % (11.6-14.6); RBC Distribution Width SD 45.2 fl (35.1-43.9); Red Blood Count 4.15 M/mm3 (4.2-5.4)
[2021-03-03 07:14] LABS: Anion Gap 8 (5-15); BUN 39 mg/dL (7-18); BUN/Creat Ratio 23.8 RATIO (10-20); Calcium,Total 8.5 mg/dL (8.5-10.1); Chloride 103 mmol/L (98-107); Creatinine, Serum 1.64 mg/dL (0.55-1.02); EST Glomerular Filtration Rate 32 mL/min (>60); Est Glom Filt Rate - Afr Amer 39 mL/min (>60); Estimated Creatinine Clearance 23.63 ml/min; Glucose 324 mg/dL (74-106); Magnesium 2.2 mg/dL (1.6-2.6); Phosphorus 2.8 mg/dL (2.5-4.9); Potassium 4.1 mmol/L (3.5-5.1); Sodium Level 140 mmol/L (136-145)
[2021-03-03 08:25] LABS: Hemoglobin A1c 6.2 % (3.8-5.6)
[2021-03-03] MEDS: BRIMONIDINE 0.2% 5ML BOTTLE 1 DRP EACH EYE ×2 (08:51→21:21)
[2021-03-03] MEDS: 0.9% Saline Lock 10 ML Syringe IV ×2 (08:51→16:25)
[2021-03-03] MEDS: Metoclopramide 10 MG/2 ML Vial 2.5 MG IV ×2 (08:51→16:25)
[2021-03-03] MEDS: 0.9% Normal Saline 1,000 ML 75 ML IV ×2 (10:21→16:18)
--- NOTE | 2021-03-03 10:31 | NURSING ---
Pt taken to surgery by OR transport staff.
--- NOTE | 2021-03-03 10:54 | CASEMGMT ---
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 SW faxed updates to [facility]. SW also called and spoke with Crystal. 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 Snow Muñoz MSW [facility]
--- NOTE | 2021-03-03 11:09 | PN.HOSP_ITS ---
Subjective Subjective No issues overnight. Patient has had no more episodes of emesis despite NG tube not being in place. Hemoglobins have remained stable. Plan is for an EGD per general surgery and stent placement by urology this morning. Patient complains of being thirsty. Objective Data Objective Data Vital Signs: Vital Signs Temp Pulse Resp BP Pulse Ox 98.0 F 101 H 16 164/79 H 94 03/03/21 07:59 03/03/21 07:59 03/03/21 07:59 03/03/21 07:59 03/03/21 07:59 Oxygen Delivery Method Room Air Weight: 98.2 kg Body Mass Index (BMI) 37.1 Intake & Output: Intake and Output for Last 24 Hours 03/01/21 03/02/21 03/03/21 23:59 23:59 23:59 Intake Total 1068.33 / 1068.33 660 / 660 Output Total 200 / 200 200 / 200 Balance 868.33 / 868.33 460 / 460 Lab / Micro Data Result Diagrams: 03/03/21 06:20 03/03/21 06:20 Labs: Laboratory Results - last 24 hr 03/02/21 03/02/21 03/02/21 16:10 16:10 16:10 WBC 11.6 H RBC 4.12 L Hgb 12.7 Hct 39.8 MCV 96.6 MCH 30.8 MCHC 31.9 L RDW Std Deviation 45.6 H RDW Coeff of Koki 12.8 Plt Count 342 MPV 10.1 Immature Gran % (Auto) 0.300 Neut % (Auto) 65.5 Lymph % (Auto) 18.3 L [place] % (Auto) 5.2 Eos % (Auto) 10.5 H Baso % (Auto) 0.2 Absolute Neuts (auto) 7.6 Absolute Lymphs (auto) 2.12 Nucleated RBC % 0 PT INR Sodium 140 Potassium 4.1 Chloride 101 Carbon Dioxide 34.0 H Anion Gap 5 BUN 39 H Creatinine 1.88 H Estim Creat Clear Calc 20.61 Est GFR (MDRD) Af Amer 33 L Est GFR (MDRD) Non-Af 27 L BUN/Creatinine Ratio 20.7 H Glucose 207 H Hemoglobin A1c Lactic Acid 1.9 Calcium 9.0 Phosphorus Magnesium Total Bilirubin 0.60 AST 12 L ALT 18 Alkaline Phosphatase 119 H Troponin I < 0.015 Total Protein 7.5 Albumin 2.9 L Globulin 4.6 H Albumin/Globulin Ratio 0.6 L Lipase 120 Urine Color Urine Clarity Urine pH Ur Specific [place] Urine Protein Urine Glucose (UA) Urine Ketones Urine Occult Blood Urine Nitrite Urine Bilirubin Urine Urobilinogen Ur Leukocyte Esterase Urine RBC Urine WBC Ur Squamous Epith Cells Urine Bacteria Urine Mucus POC Glucose Blood Type Antibody Screen 03/02/21 03/02/21 03/02/21 16:10 16:10 16:10 WBC RBC Hgb Hct MCV MCH MCHC RDW Std Deviation RDW Coeff of Koki Plt Count MPV Immature Gran % (Auto) Neut % (Auto) Lymph % (Auto) [place] % (Auto) Eos % (Auto) Baso % (Auto) Absolute Neuts (auto) Absolute Lymphs (auto) Nucleated RBC % PT 13.1 INR 1.1 Sodium Potassium Chloride Carbon Dioxide Anion Gap BUN Creatinine Estim Creat Clear Calc Est GFR (MDRD) Af Amer Est GFR (MDRD) Non-Af BUN/Creatinine Ratio Glucose Hemoglobin A1c Lactic Acid Calcium Phosphorus Magnesium Total Bilirubin AST ALT Alkaline Phosphatase Troponin I Total Protein Albumin Globulin Albumin/Globulin Ratio Lipase Urine Color Yellow Urine Clarity Cloudy Urine pH 6.0 Ur Specific [place] 1.015 Urine Protein 100 H Urine Glucose (UA) Normal Urine Ketones Negative Urine Occult Blood 150 H Urine Nitrite Negative Urine Bilirubin Negative Urine Urobilinogen Normal Ur Leukocyte Esterase 500 H Urine RBC 0 SEEN Urine WBC >100 SEEN Ur Squamous Epith Cells 0 SEEN Urine Bacteria 0 SEEN Urine Mucus 0 SEEN POC Glucose Blood Type A POSITIVE Antibody Screen NEGATIVE 03/02/21 03/02/21 03/02/21 20:02 21:42 22:46 WBC RBC Hgb 11.7 L 12.3 Hct 36.5 L 38.3 MCV MCH MCHC RDW Std Deviation RDW Coeff of Koki Plt Count MPV Immature Gran % (Auto) Neut % (Auto) Lymph % (Auto) [place] % (Auto) Eos % (Auto) Baso % (Auto) Absolute Neuts (auto) Absolute Lymphs (auto) Nucleated RBC % PT INR Sodium Potassium Chloride Carbon Dioxide Anion Gap BUN Creatinine Estim Creat Clear Calc Est GFR (MDRD) Af Amer Est GFR (MDRD) Non-Af BUN/Creatinine Ratio Glucose Hemoglobin A1c Lactic Acid Calcium Phosphorus Magnesium Total Bilirubin AST ALT Alkaline Phosphatase Troponin I Total Protein Albumin Globulin Albumin/Globulin Ratio Lipase Urine Color Urine Clarity Urine pH Ur Specific [place] Urine Protein Urine Glucose (UA) Urine Ketones Urine Occult Blood Urine Nitrite Urine Bilirubin Urine Urobilinogen Ur Leukocyte Esterase Urine RBC Urine WBC Ur Squamous Epith Cells Urine Bacteria Urine Mucus POC Glucose 310 H Blood Type Antibody Screen 03/02/21 03/03/21 03/03/21 23:55 05:53 06:20 WBC RBC Hgb Hct MCV MCH MCHC RDW Std Deviation RDW Coeff of Koki Plt Count MPV Immature Gran % (Auto) Neut % (Auto) Lymph % (Auto) [place] % (Auto) Eos % (Auto) Baso % (Auto) Absolute Neuts (auto) Absolute Lymphs (auto) Nucleated RBC % PT INR Sodium Potassium Chloride Carbon Dioxide Anion Gap BUN Creatinine Estim Creat Clear Calc Est GFR (MDRD) Af Amer Est GFR (MDRD) Non-Af BUN/Creatinine Ratio Glucose Hemoglobin A1c 6.2 H Lactic Acid Calcium Phosphorus Magnesium Total Bilirubin AST ALT Alkaline Phosphatase Troponin I Total Protein Albumin Globulin Albumin/Globulin Ratio Lipase Urine Color Urine Clarity Urine pH Ur Specific [place] Urine Protein Urine Glucose (UA) Urine Ketones Urine Occult Blood Urine Nitrite Urine Bilirubin Urine Urobilinogen Ur Leukocyte Esterase Urine RBC Urine WBC Ur Squamous Epith Cells Urine Bacteria Urine Mucus POC Glucose 283 H 326 H Blood Type Antibody Screen 03/03/21 03/03/21 06:20 06:20 WBC 13.0 H RBC 4.15 L Hgb 12.8 Hct 39.8 MCV 95.9 MCH 30.8 MCHC 32.2 RDW Std Deviation 45.2 H RDW Coeff of Koki 12.6 Plt Count 325 MPV 10.5 Immature Gran % (Auto) 0.500 Neut % (Auto) 78.3 H Lymph % (Auto) 14.5 L [place] % (Auto) 5.9 Eos % (Auto) 0.6 Baso % (Auto) 0.2 Absolute Neuts (auto) 10.2 H Absolute Lymphs (auto) 1.88 Nucleated RBC % 0 PT INR Sodium 140 Potassium 4.1 Chloride 103 Carbon Dioxide 29.0 Anion Gap 8 BUN 39 H Creatinine 1.64 H Estim Creat Clear Calc 23.63 Est GFR (MDRD) Af Amer 39 L Est GFR (MDRD) Non-Af 32 L BUN/Creatinine Ratio 23.8 H Glucose 324 H Hemoglobin A1c Lactic Acid Calcium 8.5 Phosphorus 2.8 Magnesium 2.2 Total Bilirubin AST ALT Alkaline Phosphatase Troponin I Total Protein Albumin Globulin Albumin/Globulin Ratio Lipase Urine Color Urine Clarity Urine pH Ur Specific [place] Urine Protein Urine Glucose (UA) Urine Ketones Urine Occult Blood Urine Nitrite Urine Bilirubin Urine Urobilinogen Ur Leukocyte Esterase Urine RBC Urine WBC Ur Squamous Epith Cells Urine Bacteria Urine Mucus POC Glucose Blood Type Antibody Screen Micro: Microbiology 03/02/21 16:10 Urine Catheter - Catheter Urine Culture - Preliminary GNR lactose microscopist 03/02/21 18:28 Vomitus Gastric Occult Blood - Final Occult Blood Positive Radiography Diagnostic Testing: Radiology Impression Abdomen/Pelvis CT 03/02/21 15:35 IMPRESSION: 1. Urinary bladder nondistention with pericystic induration suggesting possibility of cystitis. Recommend correlating with urinalysis. 2. Gastric and fluid distention of the stomach with suspected gastroesophageal reflux. Patient may benefit from esophagogastric tube/gastric decompression. 3. 8 mm left UVJ calculus. No hydronephrosis. 4. Left nephrolithiasis. Electronically Signed: Ihsan Drew MD ([place]) at 16:57 EDT , Service support , KUB X-Ray 03/02/21 17:48 IMPRESSION: Ileus. New enteric tube in the stomach with decreased gastric distention. Electronically Signed: Eugene Hedrick MD at 20:44 EDT , Service support , Physical Exam Const alert, oriented x3, no apparent distress and average body habitus Constitutional Narrative: Obese white female sitting up in bed, nursing at bedside, patient appears comfortable Exam Limitations: no limitations Resp normal respiratory effort, no retractions, no use of accessory muscles and clear to auscultation bilaterally Cardio regular rate, regular rhythm, S1 normal heart sound, S2 normal heart sound, no murmurs, no rub, no gallops, no clicks and no JVD GI normal to inspection, nondistended, normoactive bowel sounds, soft to palpation, non-tender and non-distended Auscultation: Negative for hyperactive bowel sounds or hypoactive bowel sounds Palpation: Negative for tender, guarding or hernia Extremity normal to inspection and no clubbing, cyanosis or edema Peripheral Pulses: Yes pulses 2+ throughout Neuro oriented x3, moves all extremities, no focal motor deficits and no sensory deficits noted Neuro Narrative: Cranial nerves III through XII intact, patient with blindness, marked generalized weakness-proximal greater than distal Sensorium / Orientation: awake, alert, oriented to person, oriented to place and oriented to time Speech: speech normal Psych Negative for affect normal Mood & Affect: anxious; Negative for depressed Assessment & Plan Assessment/Plan (1) Diabetic gastroparesis: (2) Kidney stone: (3) Acute UTI: PLAN: Nausea and vomiting secondary to suspected gastroparesis related to diabetes -As needed Zofran -Continue Reglan 2.5 mg every 6 hours scheduled -We will start clear liquid diet if okay with general surgery after EGD -Advance slowly -N.p.o. -Continue IV fluids for now -Gastric emptying study if patient able to tolerate p.o. intake Concern for upper GI bleed -Hemoglobin has remained stable throughout the night -Gastroccult was positive in the emergency department -Hold aspirin -EGD today per general surgery UTI -Continue ceftriaxone 2 g daily -Urine culture shows a gram-negative karen that is a lactose microscopist--> patient does have history of E. 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 -BGT every 6 hours CAD/HTN/HPL -Hold p.o. meds while patient is n.p.o. -Monitor blood pressure -Continue as needed hydralazine 10 mg every 6 hours for systolic greater than 160 Blindness -Chronic -Secondary to diabetes Depression/anxiety -Hold p.o. meds while patient is n.p.o. -IV Ativan is available as patient takes Ativan at baseline 0.5 mg p.o. twice daily DVT prophylaxis -SCDs Visit Charges Inpatient E&M: 19729 Subs Hosp L2
[2021-03-03 11:36] LABS: Bedside Glucose 294 mg/dL (70-110)
--- NOTE | 2021-03-03 11:41 | SUR.PREOP ---
ANESTHESIA IS AWARE OF PATIENT'S BLOOD GLUCOSE OF 294 PREOP. SERA Gomez SAID THEY WILL WAIT TILL AFTER THE PROCEDURE BEFORE THEY ADDRESS IT.
--- NOTE | 2021-03-03 11:45 | EGD_PTH ---
PATIENT: ANNALISE VINCENT LOC: [facility] U#:[id number] AGE/SX: 80/F ROOM: [facility] RE03/02/[address]: Dr. Anel Smart DO : 1940 BED: 1 DIS: 03/05/2021 SPEC #: [id number] RECD: 03/03/21 12:40 STATUS: RASHEED RECale #: [id number] JEFFERSON: 03/03/21 11:[address]: Lo Dominguez DEPT: SURGICAL PATHOLOGY RECD BY: Tonya Espana ENTERED: 03/03/21 13:05 SP TYPE: EGD BIOPSY OTHR DR: MD Dr. Anel Obregon DO Dr. Linda Wang, MD Dr. Paul Nielsen, MD Tissues: Stomach, NOS Procedures: Surgery Specimen Level IV Comments: @ Ordering doctor for SUIV edited from to @ by PRAMOD at 03/03/21 1348 @ Submitting doctor edited from to DR.LWANG Godinez by ANATOD at 03/03/21 1348 HEADER OPERATION: EGD ([facility] [place] PRE-OP DIAGNOSIS: GI bleed TISSUE SUBMITTED: Biopsy of body of stomach MICROSCOPIC DIAGNOSIS Gastric body, biopsy: Fibrinopurulent material with detached epithelial cells suggestive of ulcer. Dystrophic microcalcifications. No evidence of malignancy. AM:juany 03/04/2021 MICROSCOPIC DESCRIPTION Slides are reviewed. GROSS DESCRIPTION Received in fixative is one container labeled with the patient's name and designated biopsy of body of stomach. The specimen consists of one irregular fragment of light bansal soft tissue that measures 0.3 x 0.2 x 0.1 cm. The specimen is totally submitted in one cassette. / SJ:juany 03/03/21 TC:2 CPT: 08013
--- NOTE | 2021-03-03 12:10 | OP.EGD_ITS ---
Patient Name: Joanna Valle Procedure Date: 03/03/2021 11:49 AM Date of : 1940 Age: 80 Procedure: Upper GI endoscopy Indications: Hematemesis, Nausea with vomiting Providers: Lo Dominguez MD Medicines: See the Anesthesia note for documentation of the administered medications Patient Profile: Refer to note in patient chart for documentation of history and physical. Complications: No immediate complications. Procedure: Pre-Anesthesia Assessment: - see anesthesia note After obtaining informed consent, the endoscope was passed under direct vision. Throughout the procedure, the patient's blood pressure, pulse, and oxygen saturations were monitored continuously. The gastroscope was introduced through the mouth, and advanced to the second part of duodenum. The upper GI endoscopy was accomplished without difficulty. The patient tolerated the procedure well. Scope In: 11:57:52 AM Scope Out: 12:04:04 PM Total Procedure Duration Time 0 hours 6 minutes 12 seconds Findings: The first portion of the duodenum and second portion of the duodenum were normal. A large amount of food (residue) was found in the gastric body. A single 4 to 10 mm semi-sessile polyp with no bleeding and stigmata of recent bleeding was found in the gastric body. Biopsies were taken with a cold forceps for histology. Verification of patient identification for the specimen was done by the nurse. Estimated blood loss was minimal. Hematin (altered blood/uwmuib-rwtqdi-iwon material) was found in the entire examined stomach. A medium-sized hiatal hernia was present. Impression: - Normal first portion of the duodenum and second portion of the duodenum. - A large amount of food (residue) in the stomach - suspect diabetic gastroparesis. - A single gastric polyp. Biopsied. - Hematin (altered blood/kiaavs-mhbtyr-kuzf material) in the entire stomach. - Medium-sized hiatal hernia with sliding component. Recommendation: - Return patient to [facility] for ongoing care. - Continue present medications. Procedure Code(s): --- Professional --- 96755, Esophagogastroduodenoscopy, flexible, transoral; with biopsy, single or multiple Diagnosis Code(s): --- Professional --- K31.7, Polyp of stomach and duodenum K92.2, Gastrointestinal hemorrhage, unspecified K44.9, Diaphragmatic hernia without obstruction or gangrene K92.0, Hematemesis R11.2, Nausea with vomiting, unspecified CPT copyright 2017 [employer]. All rights reserved. The codes documented in this report are preliminary and upon rock drill operator review may be revised to meet current compliance requirements. MD Lo Pedraza MD 03/03/2021 12:09:46 PM This report has been signed electronically. Number of Addenda: 0 Note Initiated On: 03/03/2021 11:49 AM
--- NOTE | 2021-03-03 12:10 | OP.CCLET_ITS ---
03/03/2021 Drew Hammonds MD [address] [id number] Re : Upper GI endoscopy procedure for Joanna Valle Dear Dr. Hammonds This procedure was performed on Wednesday, March 03, 2021. My impressions and recommendations are as follows: Impressions : - Normal first portion of the duodenum and second portion of the duodenum. - A large amount of food (residue) in the stomach - suspect diabetic gastroparesis. - A single gastric polyp. Biopsied. - Hematin (altered blood/pyghyl-jduudx-gmbj material) in the entire stomach. - Medium-sized hiatal hernia with sliding component. Recommendations : - Return patient to [facility] for ongoing care. - Continue present medications. My findings are described in the full procedure note, which is enclosed. If I can be of further assistance, please feel free to contact me at Doctor phone number(s): , Work: . Sincerely, MD Lo Pedraza MD 03/03/2021 12:09:46 PM This report has been signed electronically.
--- NOTE | 2021-03-03 12:21 | PCM.OPRPT ---
Report of Operation Date of Procedure: 03/03/21 Pre-Operative Diagnosis: Left obstructing ureteral calculi Post-Operative Diagnosis: Same Surgery/Procedure Performed:: Cystoscopy left retrograde pyelogram left stent placement Description of Surgical Findings:: Patient was taken back to the operating room after induction of general anesthesia, the patient was placed in dorsolithotomy position. The urethra and genitals were prepped and draped in usual sterile fashion. Using a 21 Sur[place]amese rigid cystourethroscope the entire length of the urethra was normal then went into the bladder. Identified the trigone the left and right ureteral orifice. I then cannulated the left orifice and advanced a wire up into the kidney. I then backloaded a 5 Sur[place]amese open ended catheter over the wire and injected contrast to delineate the anatomy. After the retrograde was performed I then used fluoroscopic images and guidance to advanced a wire up into the kidney and over the 0.038 glidewire I advanced a 6 [place]amese by 26 cm double pigtail stent. I then pulled the 0.038 Glidewire off and the stent coiled in the kidney bladder good position. Contrast was injected into the ureter he can see contrast going up to the kidney in a smooth fashion there were no filling defects stones along the course of the ureter the kidney filled out nicely with no filling defects within the kidney. The bladder was then drained. We confirmed the position of the stent by fluoroscopy. Patient anesthetic was reversed and was taken back to the PACU in good condition. Surgeon: Carlos Davila Type of Anesthesia: MAC and Topical Anesth Drains: Left stent Admit VTE Documentation VTE Present on Admission: No VTE Mechan Device Prophylaxis: SCD's
[2021-03-03 13:06] LABS: Bedside Glucose 289 mg/dL (70-110)
--- NOTE | 2021-03-03 14:16 | PCM.PN.BLA ---
Progress Note Findings of small gastric polyp, may be sight of bleeding but not significant, this was biopsied Findings of gastroparesis and sliding hiatal hernia with possible esophageal dysmotility I spoke with daughter, Tori Campa and I told her that I would contact her with the biopsy results.
[2021-03-03 17:26] LABS: Bedside Glucose 279 mg/dL (70-110)
[2021-03-03 21:40] LABS: Bedside Glucose 238 mg/dL (70-110)
[2021-03-04] VITALS (9 sets, daily range): BP systolic 93–138; BP diastolic 56–68; PULSE 82–98; RESP 16–18; TEMP 36.3–36.8; O2SAT 95–97
[2021-03-04] MEDS: Metoclopramide 10 MG/2 ML Vial 2.5 MG IV ×3 (00:06→11:42)
[2021-03-04] MEDS: Insulin Lispro 100 UNIT/ML INSULN.PEN SC ×3 (00:07→17:07)
[2021-03-04 00:16] LABS: Bedside Glucose 199 mg/dL (70-110)
[2021-03-04] MEDS: 0.9% Normal Saline 1,000 ML 75 ML IV ×2 (05:39→11:38)
[2021-03-04 05:46] LABS: Bedside Glucose 204 mg/dL (70-110)
--- NOTE | 2021-03-04 07:32 | CON.PCM.UR_ITS ---
Assessment & Plan Assessment/Plan (1) Kidney stone: PLAN: Plan to proceed with left ureteroscopy laser lithotripsy of stone and removal of stent tomorrow n.p.o. at midnight obtain consent. HPI Consult Data Date of Consult: 03/04/21 HPI Narrative HPI Narrative: ANNALISE VINCENT, is a 80 F who presents with obstructing stone and infection she underwent cystoscopy and stent placement she has been on broad- spectrum antibiotics. At this point she is clinically stable plan to add her on for tomorrow for ureteroscopy and laser the stone and possible stent removal. N.p.o. then at midnight will get consent. [facility] Medical History Anxiety Blindness of both eyes Chest pain Congestive heart failure (CHF) Coronary artery disease Depression Diabetes GERD (gastroesophageal reflux disease) Hypertension Home Medications aspirin 81 mg PO DAILY 02/21/20 [History Last Taken Unknown] brimonidine 1 drp EACH EYE BID 02/21/20 [History Last Taken Unknown] bumetanide 1.5 mg PO DAILY 02/21/20 [History Last Taken Unknown] buspirone 0.5 tab PO BID 02/21/20 [History Last Taken Unknown] cephalexin 500 mg PO BID 02/21/20 [History Last Taken Unknown] insulin lispro 0 unit SUBCUT TID 02/21/20 [History Last Taken Unknown] venlafaxine 75 mg PO DAILY 02/21/20 [History Last Taken Unknown] ascorbic acid (vitamin C) 1,000 mg PO DAILY 02/22/20 [History Last Taken Unknown] atorvastatin 20 mg PO QHS 02/22/20 [History Last Taken Unknown] cephalexin 500 mg PO Q6 #20 cap 02/22/20 [Rx Last Taken Unknown] escitalopram oxalate 10 mg PO QHS 02/22/20 [History Last Taken Unknown] insulin detemir U-100 40 unit SQ QHS 02/22/20 [History Last Taken Unknown] loratadine 10 mg PO DAILY 02/22/20 [History Last Taken Unknown] lorazepam 0.5 mg PO BID 02/22/20 [History Last Taken Unknown] zinc 50 mg PO DAILY 02/22/20 [History Last Taken Unknown] cholecalciferol (vitamin D3) 2,000 iu 03/02/21 [History Last Taken Unknown] Allergy/AdvReac Type Severity Reaction Status Date / Time Penicillins Allergy Unknown Verified 03/02/21 15:30 Sulfa (Sulfonamide Allergy Unknown Verified 03/02/21 15:30 Antibiotics) Social History Smoking Status: Never smoker Physical Exam Const alert and oriented x3 General Appearance: cooperative HEENT normocephalic, head/scalp atraumatic, EAC's normal and TM's normal bilaterally Eyes PERRL and EOMs intact bilaterally Pupil: sluggish Neck no lymphadenopathy, supple and no JVD General: trachea midline Lymph Lymphatic: no lymphadenopathy noted, lymphedema and lymphadenopathy Resp normal respiratory effort, normal air movement and clear to auscultation bilaterally Cardio regular rate, regular rhythm and peripheral pulses 2+ throughout GI soft to palpation, non-tender and non-distended Extremity normal capillary refill and no clubbing, cyanosis or edema General Extremity: no tenderness to palpation of joints or extremities Skin no rashes or lesions noted General Skin Exam: turgor normal Lesions: no lesions Rashes: no rashes Neuro CN's II-XII intact bilaterally Speech: speech normal Motor Exam: strength 5/5 throughout; Negative for general weakness Psych thought process normal, cooperative and affect normal Appearance: appropriate Lab / Micro Data Result Diagrams: 03/03/21 06:20 03/03/21 06:20 Labs: Laboratory Results - last 24 hr 03/03/21 03/03/21 03/03/21 06:20 11:31 12:59 Hemoglobin A1c 6.2 H POC Glucose 294 H 289 H 03/03/21 03/03/21 03/04/21 16:22 21:26 00:04 Hemoglobin A1c POC Glucose 279 H 238 H 199 H 03/04/21 05:37 Hemoglobin A1c POC Glucose 204 H Micro: Microbiology 03/02/21 16:10 Urine Culture - Preliminary Urine Catheter - Catheter GNR lactose international trade analyst
[2021-03-04 08:29] LABS: Absolute Lymphocyte Count 2.18 X10^3/uL (0.83-4.51); Absolute Neutrophil Count 7.9 X10^3/uL (2.0-7.7); Basophil# 0.02 X10^3/uL; Basophil% 0.2 % (0-1); Eosinophil# 1.91 X10^3/uL; Eosinophils% 14.7 % (0-5); Hematocrit 34.9 % (37-47); Hemoglobin 10.8 g/dL (12.0-15.0); Lymphocyte # 2.18 X10^3/ul (0.83-4.51); Lymphocyte % 16.8 % (19-41); Mean Corp Hgb Conc 30.9 g/dL (32-36); Mean Corpuscular Hgb 30.9 pg (27.0-32.0); Mean Platelet Vol. 10.4 fl (6.2-12.0); Monocyte# 0.93 X10^3/uL; Monocyte% 7.1 % (0-10); NRBC Flagged by Analyzer 0 % (0-5); Neutrophil # 7.93 X10^3/uL (2.7-7.7); Neutrophil % 60.9 % (47-70); Platelet Count 257 K/mm3 (150-450); RBC Distribution Width SD 47.4 fl (35.1-43.9); Red Blood Count 3.49 M/mm3 (4.2-5.4)
[2021-03-04 08:43] LABS: Anion Gap 6 (5-15); BUN 45 mg/dL (7-18); BUN/Creat Ratio 26.3 RATIO (10-20); Calcium,Total 8.1 mg/dL (8.5-10.1); Chloride 110 mmol/L (98-107); Creatinine, Serum 1.71 mg/dL (0.55-1.02); EST Glomerular Filtration Rate 31 mL/min (>60); Est Glom Filt Rate - Afr Amer 37 mL/min (>60); Estimated Creatinine Clearance 22.66 ml/min; Glucose 180 mg/dL (74-106); Sodium Level 140 mmol/L (136-145)
--- NOTE | 2021-03-04 10:22 | CASEMGMT ---
JOSE A called Crystal at [facility] and let her know that patient will likely be returning today as long as she can keep food down. Snow Muñoz SALES DEVELOPMENT COORDINATOR BRYCE
[2021-03-04 11:51] LABS: Bedside Glucose 199 mg/dL (70-110)
--- NOTE | 2021-03-04 12:31 | PCM.PN.HOSP ---
Subjective Subjective Patient is asking for cocoa wheats this morning. She also complains of being thirsty. She is tolerating p.o. without any issues of nausea or vomiting. There are plans for lithotripsy and stent removal tomorrow from urology. No issues overnight. Objective Data Objective Data Vital Signs: Vital Signs Temp Pulse Resp BP Pulse Ox 97.3 F L 95 18 93/56 L 97 03/04/21 08:27 03/04/21 08:27 03/04/21 08:27 03/04/21 08:27 03/04/21 08:27 Oxygen Flow Rate (L/min) 1 Oxygen Delivery Method Room Air Weight: 98.2 kg Body Mass Index (BMI) 37.1 Intake & Output: Intake and Output for Last 24 Hours 03/02/21 03/03/21 03/04/21 23:59 23:59 23:59 Intake Total 1068.33 / 1068.33 2093.75 / 2093.75 1582.50 / 1582.50 Output Total 200 / 200 650 / 650 350 / 350 Balance 868.33 / 868.33 1443.75 / 1443.75 1232.50 / 1232.50 Lab / Micro Data Result Diagrams: 03/04/21 08:15 03/04/21 08:15 Labs: Laboratory Results - last 24 hr 03/03/21 03/03/21 03/03/21 12:59 16:22 21:26 WBC RBC Hgb Hct MCV MCH MCHC RDW Std Deviation RDW Coeff of Koki Plt Count MPV Immature Gran % (Auto) Neut % (Auto) Lymph % (Auto) [place] % (Auto) Eos % (Auto) Baso % (Auto) Absolute Neuts (auto) Absolute Lymphs (auto) Nucleated RBC % Sodium Potassium Chloride Carbon Dioxide Anion Gap BUN Creatinine Estim Creat Clear Calc Est GFR (MDRD) Af Amer Est GFR (MDRD) Non-Af BUN/Creatinine Ratio Glucose Calcium POC Glucose 289 H 279 H 238 H 03/04/21 03/04/21 03/04/21 00:04 05:37 08:15 WBC 13.0 H RBC 3.49 L Hgb 10.8 L Hct 34.9 L MCV 100.0 H MCH 30.9 MCHC 30.9 L RDW Std Deviation 47.4 H RDW Coeff of Koki 13.0 Plt Count 257 MPV 10.4 Immature Gran % (Auto) 0.300 Neut % (Auto) 60.9 Lymph % (Auto) 16.8 L [place] % (Auto) 7.1 Eos % (Auto) 14.7 H Baso % (Auto) 0.2 Absolute Neuts (auto) 7.9 H Absolute Lymphs (auto) 2.18 Nucleated RBC % 0 Sodium Potassium Chloride Carbon Dioxide Anion Gap BUN Creatinine Estim Creat Clear Calc Est GFR (MDRD) Af Amer Est GFR (MDRD) Non-Af BUN/Creatinine Ratio Glucose Calcium POC Glucose 199 H 204 H 03/04/21 03/04/21 08:15 11:37 WBC RBC Hgb Hct MCV MCH MCHC RDW Std Deviation RDW Coeff of Koki Plt Count MPV Immature Gran % (Auto) Neut % (Auto) Lymph % (Auto) [place] % (Auto) Eos % (Auto) Baso % (Auto) Absolute Neuts (auto) Absolute Lymphs (auto) Nucleated RBC % Sodium 140 Potassium 4.0 Chloride 110 H Carbon Dioxide 24.0 Anion Gap 6 BUN 45 H Creatinine 1.71 H Estim Creat Clear Calc 22.66 Est GFR (MDRD) Af Amer 37 L Est GFR (MDRD) Non-Af 31 L BUN/Creatinine Ratio 26.3 H Glucose 180 H Calcium 8.1 L POC Glucose 199 H Micro: Microbiology 03/02/21 16:10 Urine Catheter - Catheter Urine Culture - Preliminary Escherichia coli 03/02/21 18:28 Vomitus Gastric Occult Blood - Final Occult Blood Positive Physical Exam Const alert, oriented x3 and no apparent distress Constitutional Narrative: Obese white female lying in bed, listening to the television, patient is blind, patient is asking for water Exam Limitations: no limitations Nutritional Appearance: obese HEENT head/scalp atraumatic and moist oral mucous membranes Head and Scalp: normocephalic Neck supple Neck Narrative: Trachea midline Resp normal respiratory effort, no retractions, no use of accessory muscles and clear to auscultation bilaterally Auscultation: Negative for crackles, rales, rhonchi or wheezes Cardio regular rate, regular rhythm, S1 normal heart sound, S2 normal heart sound, no murmurs, no rub, no gallops, no clicks and no JVD GI normal to inspection, nondistended, normoactive bowel sounds, soft to palpation, non-tender and non-distended Extremity normal to inspection and no clubbing, cyanosis or edema Peripheral Pulses: Yes pulses 2+ throughout Neuro oriented x3 Sensorium / Orientation: awake, alert, oriented to person, oriented to place and oriented to time Assessment & Plan Assessment/Plan (1) Diabetic gastroparesis: (2) Acute UTI: (3) Kidney stone: PLAN: Nausea and vomiting secondary to suspected gastroparesis related to diabetes -Appears to have resolved -Continue Reglan 2.5 mg every 6 hours scheduled -Switch to p.o. -Continue to monitor while on p.o. diet -Stop IV fluids Concern for upper GI bleed -Hemoglobin has remained stable with mild drop likely related to hemodilution secondary to IV fluids -EGD done-->there is a large amount of food/residue in the stomach-suspected gastroparesis related to diabetes, normal duodenum first and second portion, single gastric polyp that was not biopsied, hematin in the entire stomach, median sized hiatal hernia -Continue Protonix--> switch to p.o. twice daily 40 mg E. coli UTI-complicated -Continue ceftriaxone 2 g daily -Current organism is sensitive to ceftriaxone--> we will continue this until discharge and then transition to Omnicef to complete treatment Left UVJ nephrolithiasis -Stent placement done on a.m. 03/03/2021 -Plan is for lithotripsy and stent removal tomorrow morning -P.o. 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 after midnight -Monitor blood pressure -Continue as needed hydralazine 10 mg every 6 hours for systolic greater than 160 Blindness -Chronic -Secondary to diabetes Depression/anxiety -Hold p.o. meds while patient is n.p.o. -IV Ativan is available as patient takes Ativan at baseline 0.5 mg p.o. twice daily DVT prophylaxis -SCDs Visit Charges Inpatient E&M: 52349 Subs Hosp L2
--- NOTE | 2021-03-04 15:31 | CASEMGMT ---
[facility] palliative screening tool completed and pt qualifies for a palliative referral. Dr. Smart is aware but declines referral at this time. Cherri FLETCHER CM
--- NOTE | 2021-03-04 16:14 | CHAPLAIN ---
Type of Pastoral Visit _x__ Initial Visit ___ Follow-up Visit ___ On-call Visit ___ General Patient Visit ___ Spiritual Assessment ___ Family Conference ___ Bereavement ___ Rapid Response ___ Code Blue ___ Other (describe below) Pastoral Care Referral From _x__ Patient ___ Family ___ Nurse ___ Physician ___ Chain Saw Driver ___ [employer] ___ Other (describe below) Sacrament/Intervention _x__ Active listening ___ Anointing ___ Bahai ___ Bereavement ___ Communion ___ Brooke exploration ___ _x__ Life review _x__ Prayer ___ Reconciliation ___ Sacrament of Sick _x__ Supportive presence ___ Wedding ___ Other (describe below) Pastoral Comments
[2021-03-04 17:20] LABS: Bedside Glucose 223 mg/dL (70-110)
[2021-03-04] MEDS: BRIMONIDINE 0.2% 5ML BOTTLE 1 DRP EACH EYE (21:01)
[2021-03-04] MEDS: Pantoprazole Sodium 40 MG Tablet PO (21:01)
[2021-03-04 21:17] LABS: Bedside Glucose 207 mg/dL (70-110)
--- NOTE | 2021-03-04 21:28 | NURSING ---
Notified pt's daughter/POA of patient having procedure tomorrow morning around 0700.
[2021-03-05] VITALS (11 sets, daily range): BP systolic 106–148; BP diastolic 49–64; PULSE 81–92; RESP 16–18; TEMP 36.2–37.2; O2SAT 95–97; BMI 37.1
[2021-03-05 00:11] LABS: Bedside Glucose 203 mg/dL (70-110)
[2021-03-05 05:25] LABS: Absolute Lymphocyte Count 2.25 X10^3/uL (0.83-4.51); Absolute Neutrophil Count 4.3 X10^3/uL (2.0-7.7); Basophil# 0.02 X10^3/uL; Basophil% 0.2 % (0-1); Eosinophil# 1.02 X10^3/uL; Eosinophils% 12.3 % (0-5); Hematocrit 28.2 % (37-47); Hemoglobin 9.1 g/dL (12.0-15.0); Lymphocyte # 2.25 X10^3/ul (0.83-4.51); Lymphocyte % 27.1 % (19-41); Mean Corp Hgb Conc 32.3 g/dL (32-36); Mean Corpuscular Hgb 31.2 pg (27.0-32.0); Mean Corpuscular Volume 96.6 fL (81-99); Monocyte# 0.73 X10^3/uL; Monocyte% 8.8 % (0-10); NRBC Flagged by Analyzer 0 % (0-5); Neutrophil # 4.25 X10^3/uL (2.7-7.7); Neutrophil % 51.2 % (47-70); Platelet Count 198 K/mm3 (150-450); RBC Distribution Width CV 12.5 % (11.6-14.6); RBC Distribution Width SD 44.3 fl (35.1-43.9); Red Blood Count 2.92 M/mm3 (4.2-5.4); White Blood Count 8.3 K/mm3 (4.4-11.0)
[2021-03-05 05:35] LABS: International Normalized Ratio 1.2; Prothrombin Time (Protime)PT. 14.7 SECONDS (11.7-14.9)
[2021-03-05 05:36] LABS: Partial Thromboplast Time 28.1 Seconds (24.1-36.2)
[2021-03-05 05:39] LABS: Anion Gap 5 (5-15); BUN 38 mg/dL (7-18); Calcium,Total 7.9 mg/dL (8.5-10.1); Chloride 106 mmol/L (98-107); Creatinine, Serum 1.41 mg/dL (0.55-1.02); EST Glomerular Filtration Rate 38 mL/min (>60); Est Glom Filt Rate - Afr Amer 46 mL/min (>60); Estimated Creatinine Clearance 27.48 ml/min; Glucose 175 mg/dL (74-106); Potassium 3.7 mmol/L (3.5-5.1); Sodium Level 139 mmol/L (136-145)
[2021-03-05] MEDS: Metoclopramide 5 MG TABLET PO ×2 (05:52→11:45)
[2021-03-05] MEDS: Pantoprazole Sodium 40 MG Tablet PO (05:52)
--- NOTE | 2021-03-05 05:55 | EKG12_ITS ---
Test Reason : AM Blood Pressure : / mmHG Vent. Rate : 094 BPM Atrial Rate : 094 BPM P-R Int : 158 ms QRS Dur : 110 ms QT Int : 380 ms P-R-T Axes : 073 023 121 degrees QTc Int : 475 ms Normal sinus rhythm Nonspecific ST and T wave abnormality Abnormal ECG Confirmed by SHERYL GIRON, KANG ([id number]), deputy editor in chief HARDY CHRISTINE ([id number]) on 03/06/2021 11:34:21 AM Referred By: MARY Confirmed By:KANG SAUCEDO MD
[2021-03-05 06:01] LABS: Bedside Glucose 162 mg/dL (70-110)
[2021-03-05] MEDS: Lubricating Jelly 60 GM Tube 30 GM TOPICAL (07:50)
--- NOTE | 2021-03-05 07:56 | PCM.DC ---
Discharge Instructions Diet Discharge Diet: No restrictions Activity Discharge Activity: May not drive while taking narcotic pain medications. (for 3 days.) May shower in (days): 1 Dressing / Incision Call your doctor if your incision/area has: Continuous Slow Oozing, Increased Pain/ Swelling, Increased Redness and Foul Smelling Discharge Call your doctor if you observe: Fever of 101 or Higher, Numbness or Tingling, Shortness of breath, Dizziness, Calf discomfort and Uncontrolled pain Cleanse incision/area with: Keep Dressing Clean & Dry Follow Up Care Please Follow Up With: Carlos Davila MD When: Call [phone] for an appointment Test Results: Test results from this visit will be discussed in further detail at your follow-up appointment, if applicable. Discharge Plan Admission Admit Date/Time: 03/02/21 18:34 Primary Reason for Your Visit: kidney stone Attending Provider: Anel Smart Primary Care Provider: Drew Hammonds Consulting Providers: Lo Dominguez ; Carlos Davila Instructions Patient Instructions: ED Kidney Stone w/ Colic Discharge Orders/Prescriptions Prescriptions: No Action venlafaxine 150 MG capsule 75 mg PO DAILY RF: 0 cephalexin 500 MG capsule 500 mg PO BID RF: 0 brimonidine 1 DROP bottle 1 drp EACH EYE BID RF: 0 aspirin 81 MG tablet,chewable 81 mg PO DAILY RF: 0 bumetanide 1 MG tablet 1.5 mg PO DAILY RF: 0 buspirone 15 MG tablet 0.5 tab PO BID RF: 0 insulin lispro 100 UNIT/ML cartridge 0 unit subcut TID RF: 0 ascorbic acid (vitamin C) 1,000 MG tablet 1,000 mg PO DAILY RF: 0 atorvastatin 20 MG tablet 20 mg PO QHS RF: 0 lorazepam 0.5 MG tablet 0.5 mg PO BID RF: 0 zinc 50 MG tablet 50 mg PO DAILY RF: 0 escitalopram oxalate 5 MG tablet 10 mg PO QHS RF: 0 insulin detemir U-100 100 UNIT/ML solution 40 unit SQ QHS RF: 0 loratadine 10 MG capsule 10 mg PO DAILY RF: 0 cephalexin 500 MG capsule 500 mg PO Q6 Qty: 20 RF: 0 cholecalciferol (vitamin D3) 2,000 iu RF: 0 Referrals / Follow Up: Carlos Davila MD [STAFF PHYSICIAN] - Drew Hammonds MD [Primary Care Provider] -
--- NOTE | 2021-03-05 07:57 | PCM.OPRPT ---
Report of Operation Date of Procedure: 03/05/21 Pre-Operative Diagnosis: Left ureteral calculi status post stent for sepsis Post-Operative Diagnosis: Same Surgery/Procedure Performed:: Ureteroscopy laser lithotripsy of stone and removal of stent Description of Surgical Findings:: This is a patient who presents to the hospital for treatment for an obstructing distal ureter calculi. I discussed with the patient how the surgery would be performed and we reviewed the risks and benefits of the surgery. The risk and benefits include the risk of failure to remove the stone completely and that the patient may need multiple procedures. We discussed the risk of an infection, the risk of bleeding. We discussed the very rare risk of serious complicated injury to the ureter. The patient understands that if the stone is not able to be removed safely that we may abort the procedure and place a stent. After full discussion and all questions address with the patient the consent form was signed the side was marked appropriately and the patient was taken back to the operating room for the procedure. The patient was taken back to the operating room. After induction of anesthesia by the anesthesiology team the patient was placed in dorsolithotomy position. The genitals were prepped and draped in usual sterile fashion. I went into the bladder with a 21 [place] rigid cystourethroscope through the urethra. Upon entering the bladder I inspected the trigone the left and right ureteral orifice and the bladder itself. I then cannulated the left ureteral orifice and advanced a 0.038 Glidewire up into the kidney. Then over the Glidewire I advanced a 5 Fr Ureteral catheter and performed a retrograde pyelogram with about 10cc of contrast, to delineate the anatomy and identify the stone location. Then a ureteral balloon dilator was advanced over the wire and the distal ureter was balloon dilated with a 12 Fr x 5cm balloon dilator. After 3 minutes of dilating the ureter the balloon was backloaded off the 0.038 glidewire then the safety wire was left in place. I then placed a second 0.038 Guidewire as a working wire and over the working 0.038 guidewire I went in with the maricruz rigide 7.5fr ureteroscope. I was able to go inside with the 7.5Fr maricruz rigid utereroscope and I pulled out the working guidewire and then through the 7.5 fr simirigid ureteroscope I engage the stone in the distal ureter with laser lithotripsy using a 270miron laser fiber with energy setting of 6 Hertz and 0.6 J until the stone was lasered into tiny little pieces that should pass on their own. I then drained the patient's bladder and the cystoscope was removed and the patient was taken back to the recovery room in good position. The patient was given discharge instructions to call the office for instructions on when to come to the office. Surgeon: cristal Type of Anesthesia: General Admit VTE Documentation VTE Present on Admission: No VTE Mechan Device Prophylaxis: SCD's
[2021-03-05 08:16] LABS: Bedside Glucose 147 mg/dL (70-110)
[2021-03-05] MEDS: BRIMONIDINE 0.2% 5ML BOTTLE 1 DRP EACH EYE (09:42)
[2021-03-05] MEDS: Insulin Lispro 100 UNIT/ML INSULN.PEN SC (11:45)
[2021-03-05 12:00] LABS: Bedside Glucose 170 mg/dL (70-110)
--- NOTE | 2021-03-05 12:27 | PCM.DC.SUM ---
Providers Date of Admission: 03/02/21 Primary Care Physician: Dr. Drew Hammonds MD Consultations 03/02/21 19:35 Consult: General Surgery Routine Consulting Provider: Lo Dominguez Reason for Consult: UGIB/Gastroparesis EMERGENT Consult: No Notified: Yes Date Notified:: 03/02/21 Time Notified: 18:32 Method of Notification: Verbal Consult: Urology Routine Consulting Provider: Carlos Davila Reason for Consult: Urolitiasis EMERGENT Consult: No Notified: Yes Date Notified:: 03/02/21 Time Notified: 18:33 Method of Notification: Verbal Reason For Visit: UGIB, UROLITHIASIS, UTI Diagnosis Discharge Diagnosis (1) Diabetic gastroparesis: Status: Acute Code(s): E11.43 - Type 2 diabetes mellitus with diabetic autonomic (poly)neuropathy; K31.84 - Gastroparesis (2) Acute UTI: Status: Acute Code(s): N39.0 - Urinary tract infection, site not specified (3) Kidney stone: Status: Acute Code(s): N20.0 - Calculus of kidney Medications at Discharge Home Medications aspirin 81 mg PO DAILY 02/21/20 brimonidine 1 drp EACH EYE BID 02/21/20 bumetanide 1.5 mg PO DAILY 02/21/20 buspirone 0.5 tab PO BID 02/21/20 cephalexin 500 mg PO BID 02/21/20 insulin lispro 0 unit SUBCUT TID 02/21/20 venlafaxine 75 mg PO DAILY 02/21/20 ascorbic acid (vitamin C) 1,000 mg PO DAILY 02/22/20 atorvastatin 20 mg PO QHS 02/22/20 escitalopram oxalate 10 mg PO QHS 02/22/20 insulin detemir U-100 40 unit SQ QHS 02/22/20 loratadine 10 mg PO DAILY 02/22/20 lorazepam 0.5 mg PO BID 02/22/20 zinc 50 mg PO DAILY 02/22/20 cholecalciferol (vitamin D3) 2,000 iu 03/02/21 cephalexin 500 mg PO Q6H #28 cap 03/05/21 metoclopramide HCl 5 mg PO TIDAC #0 tab 03/05/21 pantoprazole [Protonix] 40 mg PO BID #60 tab 03/05/21 Hospital Course Operations - (Lithotripsy, stent placement, stent removal) Procedures EGD Summary of Care Provided Minutes Spent on Discharge: 44 Hospital Course: HPI - General HPI Narrative ANNALISE VINCENT, is a 80 F who presented to the emergency department [facility] on 03/02/2021 from [facility] with nausea and vomiting and concern for upper GI bleed.? Per discussion with the patient and her she started having some vomiting on the afternoon prior to admission and had 4 emesis the day prior to admission which were greenish-yellow in nature.? Her emesis on the day of admission was coffee-ground in appearance and possible blood clot in the vomitus and therefore she was transferred to the emergency department for further evaluation.? She was taking aspirin. In the emergency department her vital signs were stable and her blood pressures were intermittently hypertensive but she had no hypotensive episodes.? She had a mildly elevated white count at 11.6 and a hemoglobin of 12.7 with a platelet count of 342.? She had recent lab drawn here on 02/22/2020 where she had a normal white count and hemoglobin of 13.6.? She also did appear to be mildly hemoconcentrated at that time as her creatinine was higher than it is at this time.? Her BMP showed normal electrolytes BUN of 39 and serum creatinine of 1.8.? She had a normal lactic acid.? A negative troponin.? Her LFTs were within normal limits.? And her lipase was 120.? Her UA showed protein, occult blood, leuk esterase, greater than 100 white cells per high-power field but no bacteria.? She had been on Keflex for a day or so prior to admission.? Her EKG was unremarkable for acute changes.? A noncontrasted CT of her abdomen pelvis was performed and showed bilateral lung base granulomas, normal liver, a one-point centimeter left renal calculus, moderate fluid and air distention of the stomach with normal small intestines and large bowel, diffuse atherosclerotic calcification, circumferential bladder wall thickening and an 8 mm calculus of the left UVJ.? The emergency department physician discussed the case both with general surgery and urology.? She was admitted to PCU for further care. An EGD was done on 03/03/2021 and showed a large amount of food/residue in the gastric body suspicious for gastroparesis, a single sessile polyp that was biopsied, a medium size hiatal hernia, and a normal duodenum she also had hematin stain mucosa in the entire stomach. Also on the a stent was placed at the UVJ on the left side by urology. She was maintained on IV antibiotics and placed on Reglan. She tolerated both well and was able to advance to a regular diet without difficulty or recurrent emesis/nausea. Her urine cultures grew E. coli that was sensitive to the ceftriaxone she had been on. She'll be discharged on Keflex to complete a course of antibiotics for complicated UTI. The stent was removed and lithotripsy was performed on 03/05/2021. She was also placed on Protonix 40 mg twice daily. This will continue for 6 weeks and at 6 weeks she can reduce the dose from 40 mg twice daily to 40 mg daily. She was discharged back to [facility] in stable condition. Follow-up with Dr. Davila as directed. Follow-up with PCP in 1 week. Discharge diagnoses Diabetic gastroparesis Upper GI bleed-resolved E. 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 Depression Anxiety ABG / Lab / Microbiology Data Result Diagrams: 03/05/21 05:20 03/05/21 05:20 Laboratory: Laboratory Results - last 24 hr 03/04/21 03/04/21 03/05/21 17:04 21:00 00:04 WBC RBC Hgb Hct MCV MCH MCHC RDW Std Deviation RDW Coeff of Koki Plt Count MPV Immature Gran % (Auto) Neut % (Auto) Lymph % (Auto) [place] % (Auto) Eos % (Auto) Baso % (Auto) Absolute Neuts (auto) Absolute Lymphs (auto) Nucleated RBC % PT INR APTT Sodium Potassium Chloride Carbon Dioxide Anion Gap BUN Creatinine Estim Creat Clear Calc Est GFR (MDRD) Af Amer Est GFR (MDRD) Non-Af BUN/Creatinine Ratio Glucose Calcium POC Glucose 223 H 207 H 203 H 03/05/21 03/05/21 03/05/21 05:20 05:20 05:20 WBC 8.3 RBC 2.92 L Hgb 9.1 L Hct 28.2 L MCV 96.6 MCH 31.2 MCHC 32.3 RDW Std Deviation 44.3 H RDW Coeff of Koki 12.5 Plt Count 198 MPV 10.0 Immature Gran % (Auto) 0.400 Neut % (Auto) 51.2 Lymph % (Auto) 27.1 [place] % (Auto) 8.8 Eos % (Auto) 12.3 H Baso % (Auto) 0.2 Absolute Neuts (auto) 4.3 Absolute Lymphs (auto) 2.25 Nucleated RBC % 0 PT 14.7 INR 1.2 APTT 28.1 Sodium 139 Potassium 3.7 Chloride 106 Carbon Dioxide 28.0 Anion Gap 5 BUN 38 H Creatinine 1.41 H Estim Creat Clear Calc 27.48 Est GFR (MDRD) Af Amer 46 L Est GFR (MDRD) Non-Af 38 L BUN/Creatinine Ratio 27.0 H Glucose 175 H Calcium 7.9 L POC Glucose 03/05/21 03/05/21 03/05/21 05:51 08:13 11:43 WBC RBC Hgb Hct MCV MCH MCHC RDW Std Deviation RDW Coeff of Koki Plt Count MPV Immature Gran % (Auto) Neut % (Auto) Lymph % (Auto) [place] % (Auto) Eos % (Auto) Baso % (Auto) Absolute Neuts (auto) Absolute Lymphs (auto) Nucleated RBC % PT INR APTT Sodium Potassium Chloride Carbon Dioxide Anion Gap BUN Creatinine Estim Creat Clear Calc Est GFR (MDRD) Af Amer Est GFR (MDRD) Non-Af BUN/Creatinine Ratio Glucose Calcium POC Glucose 162 H 147 H 170 H Microbiology: Microbiology 03/02/21 16:55 Blood Culture - Preliminary Blood Culture (Wb) - Left Hand No growth in 48 hours. 03/02/21 16:10 Blood Culture - Preliminary Blood Culture (Wb) - Anticubital Right No growth in 48 hours. 03/02/21 16:10 Urine Culture - Final Urine Catheter - Catheter Escherichia coli Microbiology 03/02/21 16:55 Blood Culture (Wb) - Left Hand Blood Culture - Preliminary No growth in 48 hours. 03/02/21 16:10 Blood Culture (Wb) - Anticubital Right Blood Culture - Preliminary No growth in 48 hours. 03/02/21 16:10 Urine Catheter - Catheter Urine Culture - Final Escherichia coli 03/02/21 18:28 Vomitus Gastric Occult Blood - Final Occult Blood Positive D/C Instructions Discharge Diet: No restrictions, Low fat / Low cholesterol and 1800 Calorie Control Diet Discharge Activity: Return to Normal Activity May shower in (days): 1 Call your doctor if your incision/area has: Continuous Slow Oozing, Increased Pain/ Swelling, Increased Redness and Foul Smelling Discharge Call your doctor if you observe: Fever of 101 or Higher, Numbness or Tingling, Shortness of breath, Dizziness, Calf discomfort and Uncontrolled pain Cleanse incision/area with: Keep Dressing Clean & Dry Please Follow Up With: Carlos Davila MD When: Call [phone] for an appointment Meaningful Use Info Meaningful Use Diagnoses (Choose all that apply): None applicable Discharge Plan Admission Admit Date/Time: 03/02/21 18:34 Primary Reason for Your Visit: kidney stone/GI Bleed Attending Provider: Anel Smart Primary Care Provider: Drew Hammonds Consulting Providers: Lo Dominguez ; Carlos Davila Instructions Patient Instructions: ED Kidney Stone w/ Colic Discharge Orders/Prescriptions Prescriptions: New metoclopramide HCl 5 mg Tablet 5 mg PO TIDAC Qty: 0 RF: 0 cephalexin 500 mg capsule 500 mg PO Q6H Qty: 28 RF: 0 pantoprazole [Protonix] 40 mg tablet,delayed release (DR/EC) 40 mg PO BID Qty: 60 RF: 0 Continued venlafaxine 150 MG capsule 75 mg PO DAILY RF: 0 cephalexin 500 MG capsule 500 mg PO BID RF: 0 brimonidine 1 DROP bottle 1 drp EACH EYE BID RF: 0 aspirin 81 MG tablet,chewable 81 mg PO DAILY RF: 0 bumetanide 1 MG tablet 1.5 mg PO DAILY RF: 0 buspirone 15 MG tablet 0.5 tab PO BID RF: 0 insulin lispro 100 UNIT/ML cartridge 0 unit subcut TID RF: 0 ascorbic acid (vitamin C) 1,000 MG tablet 1,000 mg PO DAILY RF: 0 atorvastatin 20 MG tablet 20 mg PO QHS RF: 0 lorazepam 0.5 MG tablet 0.5 mg PO BID RF: 0 zinc 50 MG tablet 50 mg PO DAILY RF: 0 escitalopram oxalate 5 MG tablet 10 mg PO QHS RF: 0 insulin detemir U-100 100 UNIT/ML solution 40 unit SQ QHS RF: 0 loratadine 10 MG capsule 10 mg PO DAILY RF: 0 cholecalciferol (vitamin D3) 2,000 iu RF: 0 Discontinued cephalexin 500 MG capsule 500 mg PO Q6 Qty: 20 RF: 0 Referrals / Follow Up: Carlos Davila MD [STAFF PHYSICIAN] - Drew Hammonds MD [Primary Care Provider] - Disposition Disposition (needs filled in before D/C Order can be placed): [facility] Visit Charges Inpatient E&M: 08944 SNF Disch >30 Min
--- NOTE | 2021-03-05 13:01 | TREXTCAR_ITS ---
Diet 03/05/21 07:57 Diet: Regular - General Dietary Modifications:: Consistent Carbohydrate Sodium Restricted Is pt able to select menu?: No Routine Orders/Code Status Enema Frequency: Daily PRN O2 Frequency: PRN Keep PO Greater than or Equal to (%): 92 Routine Lab Work: CBC and BMP Therapies Physical Therapy: Eval and Treat Occupational Therapy: Eval and Treat Problem/Diagnosis (1) Diabetic gastroparesis: Status: Acute (2) Acute UTI: Status: Acute (3) Kidney stone: Status: Acute Allergies/Procedures Done in Hospital Allergies Penicillins Allergy (Verified 03/02/21 15:30) Unknown Sulfa (Sulfonamide Antibiotics) Allergy (Verified 03/02/21 15:30) Unknown Type of Care/Length of Stay Estimated LOS: More Than 30 Days Type of Care Needed: Skilled Rehab Potential: Poor Prognosis: Fair Additional Orders/Day of Discharge Day of Discharge: 03/05/21 Dietary and Speech Recommendations Dietitian Recommendations/Changes: Suggest advanced diet as tolerated to 1600 calorie; cardiac; sodium-restricted; consistent-carbohydrate with small meals/snacks--monitor need to restrict protein as indicated once diet advanced due to CKD stage 4. Follow Up Care Please follow up with your Primary Care Physician in: 1 to 2 weeks Please Follow Up With: Carlos Davila MD Discharge Plan Admission Admit Date/Time: 03/02/21 18:34 Primary Reason for Your Visit: kidney stone/GI Bleed Attending Provider: Anel Smart Primary Care Provider: Drew Hammonds Consulting Providers: Lo Dominguez ; Carlos Davila Instructions Patient Instructions: ED Kidney Stone w/ Colic Discharge Orders/Prescriptions Prescriptions: New metoclopramide HCl 5 mg Tablet 5 mg PO TIDAC Qty: 0 RF: 0 cephalexin 500 mg capsule 500 mg PO Q6H Qty: 28 RF: 0 pantoprazole [Protonix] 40 mg tablet,delayed release (DR/EC) 40 mg PO BID Qty: 60 RF: 0 Continued venlafaxine 150 MG capsule 75 mg PO DAILY RF: 0 cephalexin 500 MG capsule 500 mg PO BID RF: 0 brimonidine 1 DROP bottle 1 drp EACH EYE BID RF: 0 aspirin 81 MG tablet,chewable 81 mg PO DAILY RF: 0 bumetanide 1 MG tablet 1.5 mg PO DAILY RF: 0 buspirone 15 MG tablet 0.5 tab PO BID RF: 0 insulin lispro 100 UNIT/ML cartridge 0 unit subcut TID RF: 0 ascorbic acid (vitamin C) 1,000 MG tablet 1,000 mg PO DAILY RF: 0 atorvastatin 20 MG tablet 20 mg PO QHS RF: 0 lorazepam 0.5 MG tablet 0.5 mg PO BID RF: 0 zinc 50 MG tablet 50 mg PO DAILY RF: 0 escitalopram oxalate 5 MG tablet 10 mg PO QHS RF: 0 insulin detemir U-100 100 UNIT/ML solution 40 unit SQ QHS RF: 0 loratadine 10 MG capsule 10 mg PO DAILY RF: 0 cholecalciferol (vitamin D3) 2,000 iu RF: 0 Discontinued cephalexin 500 MG capsule 500 mg PO Q6 Qty: 20 RF: 0 Referrals / Follow Up: Carlos Davila MD [STAFF PHYSICIAN] - Drew Hammonds MD [Primary Care Provider] - Disposition Disposition (needs filled in before D/C Order can be placed): Nursing Home Facility
--- NOTE | 2021-03-05 14:31 | CASEMGMT ---
Patient is ready for discharge back to [facility]. JOSE A arranged for patient to get picked up at 430 via cot. SW faxed orders to [facility]. SW notified patient's who was in the room with patient, RN, bilingual secretary, and Crystal at [facility]. Plan: d/c back to [facility] under skilled level of care. [facility]. Snow WU
--- NOTE | 2021-03-05 14:47 | NURSING ---
Report called to nurse Mckenna at [facility] for pt return to facility.
== END 2021-03-05 16:41 | disposition skilled nursing facility (03) | DRG 988 ==
LOC: ED 18:14 → PCU 19:06
PROVIDERS: Anesthesiology; Surgery; Urology; Admitting Provider Internal Medicine; Emergency Provider Emergency Medicine; PCP Family Medicine; Visit Provider Internal Medicine
PROC: 0T778DZ Dilation of Left Ureter with Intraluminal Device, Via Natural or Artificial Opening Endoscopic (ICD-10-PCS; CPT 52332; principal; 2021-03-03 11:20)
PROC: 0DJ08ZZ Inspection of Upper Intestinal Tract, Via Natural or Artificial Opening Endoscopic (ICD-10-PCS; CPT 43235; 2021-03-03 11:20)
PROC: 0DJ08ZZ Inspection of Upper Intestinal Tract, Via Natural or Artificial Opening Endoscopic (ICD-10-PCS; CPT 43235; principal; 2021-03-03 11:40)
PROC: 0TJ98ZZ Inspection of Ureter, Via Natural or Artificial Opening Endoscopic (ICD-10-PCS; CPT 52352; principal; 2021-03-05 07:20)
DX: E11.43 Type 2 diabetes mellitus with diabetic autonomic (poly)neuropathy (principal); N39.0 Urinary tract infection, site not specified; N20.2 Calculus of kidney with calculus of ureter; K92.0 Hematemesis; I13.0 Hypertensive heart and chronic kidney disease with heart failure and stage 1 through stage 4 chronic kidney disease, or unspecified chronic kidney disease; N18.4 Chronic kidney disease, stage 4 (severe); K31.84 Gastroparesis; K21.9 Gastro-esophageal reflux disease without esophagitis; I50.9 Heart failure, unspecified; I25.10 Atherosclerotic heart disease of native coronary artery without angina pectoris; F32.9 Major depressive disorder, single episode, unspecified; H54.3 Unqualified visual loss, both eyes; F41.9 Anxiety disorder, unspecified; Z79.899 Other long term (current) drug therapy; Z79.82 Long term (current) use of aspirin; Z79.4 Long term (current) use of insulin; Z95.1 Presence of aortocoronary bypass graft; Z86.16 Personal history of COVID-19; K44.9 Diaphragmatic hernia without obstruction or gangrene; K31.7 Polyp of stomach and duodenum; B96.20 Unspecified Escherichia coli [E. coli] as the cause of diseases classified elsewhere; E11.39 Type 2 diabetes mellitus with other diabetic ophthalmic complication; E78.5 Hyperlipidemia, unspecified; E11.22 Type 2 diabetes mellitus with diabetic chronic kidney disease
CPT/HCPCS: 36415; 74018; 74176; 76000; 80048; 80053; 81001; 82271; 82962; 83036; 83605; 83690; 83735; 84100; 84484; 85014; 85018; 85025; 85610; 85730; 86850; 86900; 86901; 87040; 87077; 87086; 87088; 87186; 88305; 93005; 97110; 97162; 97802; 99251; 99285; J7030; A4216; C1769; C2617; G0463; J0696; J2405

== ENCOUNTER → 2021-06-03 05:00 | Outpatient (REF) | payer MEDICARE, MEDICAID, SELFPAY ==
[2021-06-03 07:44] LABS: Absolute Lymphocyte Count 2.15 X10^3/uL (0.83-4.51); Basophil# 0.03 X10^3/uL; Basophil% 0.4 % (0-1); Eosinophil# 0.45 X10^3/uL; Eosinophils% 6.2 % (0-5); Hemoglobin 9.5 g/dL (12.0-15.0); Lymphocyte # 2.15 X10^3/ul (0.83-4.51); Lymphocyte % 29.7 % (19-41); Mean Corp Hgb Conc 30.6 g/dL (32-36); Mean Corpuscular Hgb 29.6 pg (27.0-32.0); Mean Corpuscular Volume 96.6 fL (81-99); Mean Platelet Vol. 9.9 fl (6.2-12.0); Monocyte# 0.58 X10^3/uL; NRBC Flagged by Analyzer 0 % (0-5); Neutrophil # 4.01 X10^3/uL (2.7-7.7); Neutrophil % 55.3 % (47-70); Platelet Count 301 K/mm3 (150-450); RBC Distribution Width CV 12.8 % (11.6-14.6); RBC Distribution Width SD 45.7 fl (35.1-43.9); Red Blood Count 3.21 M/mm3 (4.2-5.4); White Blood Count 7.3 K/mm3 (4.4-11.0)
[2021-06-03 08:12] LABS: ALB/GLOB Ratio 0.5 RATIO (0.9-2.4); AST(SGOT) 11 U/L (15-37); Alanine Aminotransfer ALT/SGPT 16 U/L (13-56); Albumin, Serum 2.3 g/dL (3.2-5.0); Alkaline Phosphatase 114 U/L (45-117); Anion Gap 4 (5-15); BUN 29 mg/dL (7-18); BUN/Creat Ratio 17.7 RATIO (10-20); Calcium,Total 8.6 mg/dL (8.5-10.1); Chloride 105 mmol/L (98-107); Creatinine, Serum 1.64 mg/dL (0.55-1.02); EST Glomerular Filtration Rate 32 mL/min (>60); Est Glom Filt Rate - Afr Amer 39 mL/min (>60); Globulin 4.3 g/dL (2.2-4.2); Glucose 191 mg/dL (74-106); Potassium 4.7 mmol/L (3.5-5.1); Protein, Total 6.6 g/dL (6.4-8.2); Sodium Level 140 mmol/L (136-145)
[2021-06-04 07:44] LABS: Bacteria 0 SEEN /hpf (None Seen); Mucous, Urine 0 SEEN /hpf (<or=2+); Red Blood Cells-Urine 0 SEEN /hpf (0-5); Squamous Epithelial Cells - UA 0 SEEN /hpf (5-10)
[2021-06-04 07:53] LABS: Color, Urine Yellow (Yellow); Glucose, Dipstick Normal (Normal); Ketone-Dipstick Negative (Negative); Leukocyte Esterase-Dipstick 500 /ul (Negative); Nitrite-Dipstick Negative (Negative); Occult Blood-Urine 150 /ul (Negative); Protein-Dipstick 30 mg/dl (Negative); Urine Bilirubin Dipstick Negative (Negative); Urine Clarity Cloudy (Clear); Urine Urobilinogen Normal (Normal); Urine pH 6.5 (5.0 - 8.0)
[2021-06-04 08:14] LABS: White Blood Cells >100 SEEN /hpf (0-5)
== END ==
LOC: OLS.SW500 05:00
PROVIDERS: PCP Family Medicine; Visit Provider Family Medicine
DX: R41.82 Altered mental status, unspecified (principal)
CPT/HCPCS: 36415; 80053; 81001; 85025; 87086; 87088; 87186

== ENCOUNTER → 2021-06-05 05:00 | Outpatient (REF) | payer MEDICARE, MEDICAID, SELFPAY ==
[2021-06-05 08:26] LABS: Hematocrit 33.3 % (37-47); Hemoglobin 10.3 g/dL (12.0-15.0); Mean Corp Hgb Conc 30.9 g/dL (32-36); Mean Corpuscular Hgb 29.8 pg (27.0-32.0); Mean Corpuscular Volume 96.2 fL (81-99); Platelet Count 320 K/mm3 (150-450); RBC Distribution Width CV 12.8 % (11.6-14.6); Red Blood Count 3.46 M/mm3 (4.2-5.4); White Blood Count 7.8 K/mm3 (4.4-11.0)
[2021-06-05 08:44] LABS: Anion Gap 2 (5-15); BUN 33 mg/dL (7-18); BUN/Creat Ratio 19.5 RATIO (10-20); Calcium,Total 8.5 mg/dL (8.5-10.1); Chloride 107 mmol/L (98-107); Cholesterol 167 mg/dL (200); Creatinine, Serum 1.69 mg/dL (0.55-1.02); EST Glomerular Filtration Rate 31 mL/min (>60); Est Glom Filt Rate - Afr Amer 37 mL/min (>60); Glucose 102 mg/dL (74-106); High Density Lipoprotein 42 mg/dL; Potassium 4.2 mmol/L (3.5-5.1); Sodium Level 141 mmol/L (136-145); Thyroid Stim Hormone (TSH) 2.64 uIU/mL (0.358-3.74); Triglycerides 126 mg/dL; Very Low Density Lipoprotein 25 mg/dL (5-40)
[2021-06-05 09:20] LABS: Hemoglobin A1c 7.1 % (3.8-5.6)
[2021-06-06 08:35] LABS: Microalbumin,Random Urine 64.4 mg/L (NO RANGE EST.)
== END ==
LOC: OLS.SW500 05:00
PROVIDERS: PCP Family Medicine; Visit Provider Family Medicine
DX: D64.9 Anemia, unspecified (principal); E11.9 Type 2 diabetes mellitus without complications; I10 Essential (primary) hypertension; E78.5 Hyperlipidemia, unspecified
CPT/HCPCS: 36415; 80048; 80061; 82043; 83036; 84443; 85027

== ENCOUNTER → 2021-09-05 05:00 | Outpatient (REF) | payer MEDICARE, MEDICAID, SELFPAY | LOC: OLS.SW300 05:00 | PROVIDERS: PCP Family Medicine; Visit Provider Family Medicine | DX: D64.9 Anemia, unspecified (principal); E11.9 Type 2 diabetes mellitus without complications; R53.83 Other fatigue | CPT/HCPCS: 36415; 82043; 85027 ==

== ENCOUNTER → 2021-09-08 05:25 | Outpatient (REF) | payer MEDICARE, MEDICAID, SELFPAY ==
[2021-09-08 07:42] LABS: Hematocrit 31.9 % (37-47); Hemoglobin 9.8 g/dL (12.0-15.0); Mean Corp Hgb Conc 30.7 g/dL (32-36); Mean Corpuscular Hgb 29.1 pg (27.0-32.0); Mean Corpuscular Volume 94.7 fL (81-99); Mean Platelet Vol. 10.7 fl (6.2-12.0); Platelet Count 295 K/mm3 (150-450); RBC Distribution Width SD 44.5 fl (35.1-43.9); Red Blood Count 3.37 M/mm3 (4.2-5.4); White Blood Count 6.8 K/mm3 (4.4-11.0)
[2021-09-08 08:11] LABS: Anion Gap 3 (5-15); BUN 28 mg/dL (7-18); BUN/Creat Ratio 15.6 RATIO (10-20); Calcium,Total 8.8 mg/dL (8.5-10.1); Chloride 109 mmol/L (98-107); Cholesterol 145 mg/dL (200); EST Glomerular Filtration Rate 29 mL/min (>60); Est Glom Filt Rate - Afr Amer 35 mL/min (>60); Glucose 71 mg/dL (74-106); High Density Lipoprotein 34 mg/dL; Potassium 3.9 mmol/L (3.5-5.1); Sodium Level 142 mmol/L (136-145); Thyroid Stim Hormone (TSH) 2.54 uIU/mL (0.358-3.74); Triglycerides 105 mg/dL; Very Low Density Lipoprotein 21 mg/dL (5-40)
[2021-09-08 08:25] LABS: Hemoglobin A1c 6.3 % (3.8-5.6)
== END ==
LOC: OLS.SW300 05:25
PROVIDERS: PCP Family Medicine; Visit Provider Family Medicine
DX: E11.22 Type 2 diabetes mellitus with diabetic chronic kidney disease (principal); R53.83 Other fatigue; D64.9 Anemia, unspecified; N18.4 Chronic kidney disease, stage 4 (severe)
CPT/HCPCS: 36415; 80048; 80061; 82306; 83036; 84443; 85027

== ENCOUNTER 2021-10-12 02:17 | Inpatient (IN) | payer MEDICARE, MEDICAID, SELFPAY ==
[2021-10-12] VITALS (15 sets, daily range): BP systolic 100–130; BP diastolic 39–68; PULSE 104–128; RESP 18–36; TEMP 35.3–36.6; O2SAT 90–98; BMI 34.1
--- NOTE | 2021-10-12 02:35 | EKG12_ITS ---
Test Reason : GI BLEED Blood Pressure : / mmHG Vent. Rate : 130 BPM Atrial Rate : 130 BPM P-R Int : 136 ms QRS Dur : 106 ms QT Int : 342 ms P-R-T Axes : 029 026 175 degrees QTc Int : 503 ms Sinus tachycardia Nonspecific ST and T wave abnormality Abnormal ECG Confirmed by SHERYL GIRON, KANG ([id number]), editor city SIENA APPIAH ([id number]) on 10/15/2021 10:19:24 AM Referred By: DR KING Confirmed By:KANG SAUCEDO MD
--- NOTE | 2021-10-12 02:38 | EX.ED.DYSGE1 ---
HPI History of Present Illness Chief Complaint: GI Bleed Informant: patient and SNF Narrative Narrative: Patient sent in from ECF secondary to vomiting and mental status change. Reportedly she has been vomiting for the past 4 days with dark-colored vomitus. Reportedly today she was less arousable. She does have a DNR Comfort Care order. as well as daughter who is POA are in route to the hospital. On review of previous chart patient was admitted in February of this year with an upper GI bleed and a kidney stone. At that time she did undergo EGD. She was felt to have gastroparesis from her diabetes. [facility] Medical History Anxiety Blindness of both eyes Chest pain Congestive heart failure (CHF) Coronary artery disease Depression Diabetes GERD (gastroesophageal reflux disease) Hypertension Home Medications aspirin 81 mg PO DAILY 02/21/20 [History Last Taken Unknown] brimonidine 1 drp EACH EYE BID 02/21/20 [History Last Taken Unknown] bumetanide 1.5 mg PO DAILY 02/21/20 [History Last Taken Unknown] buspirone 0.5 tab PO BID 02/21/20 [History Last Taken Unknown] cephalexin 500 mg PO BID 02/21/20 [History Last Taken Unknown] insulin lispro 0 unit SUBCUT TID 02/21/20 [History Last Taken Unknown] venlafaxine 75 mg PO DAILY 02/21/20 [History Last Taken Unknown] ascorbic acid (vitamin C) 1,000 mg PO DAILY 02/22/20 [History Last Taken Unknown] atorvastatin 20 mg PO QHS 02/22/20 [History Last Taken Unknown] escitalopram oxalate 10 mg PO QHS 02/22/20 [History Last Taken Unknown] insulin detemir U-100 40 unit SQ QHS 02/22/20 [History Last Taken Unknown] loratadine 10 mg PO DAILY 02/22/20 [History Last Taken Unknown] lorazepam 0.5 mg PO BID 02/22/20 [History Last Taken Unknown] zinc 50 mg PO DAILY 02/22/20 [History Last Taken Unknown] cholecalciferol (vitamin D3) 2,000 iu 03/02/21 [History Last Taken Unknown] cephalexin 500 mg PO Q6H #28 cap 03/05/21 [Rx Last Taken Unknown] metoclopramide HCl 5 mg PO TIDAC #0 tab 03/05/21 [Rx Last Taken Unknown] pantoprazole [Protonix] 40 mg PO BID #60 tab 03/05/21 [Rx Last Taken Unknown] Allergy/AdvReac Type Severity Reaction Status Date / Time Penicillins Allergy Unknown Verified 10/12/21 02:22 Sulfa (Sulfonamide Allergy Unknown Verified 10/12/21 02:22 Antibiotics) Social History Smoking Status: Never smoker ROS ROS ED ROS Narrative Patient does answer rare questions making review of systems difficult. She denies being in pain. Review of Systems ROS Unobtainable: due to mental condition EXAM Physical Exam Const Vital Signs: 10/12/21 02:18 10/12/21 05:23 Temperature 95.5 F L Temperature Source Temporal Pulse Rate 128 H 104 H Respiratory Rate 28 H 34 H Blood Pressure 100/68 105/52 L Blood Pressure Mean 78 69 Pulse Ox 98 95 Oxygen Delivery Method Nasal Cannula Oxygen Flow Rate (L/min) 2 Positive obese Nutritional Appearance: obese Neck supple Chest Wall inspection of chest normal and palpation of chest normal Resp clear to auscultation bilaterally Resp Narrative: Tachypnea Cardio Rate: tachycardic GI GI Narrative: Distended with hypoactive bowel sounds. Extremity normal to inspection Neuro Neuro Narrative: Arouses to voice. Skin no rashes or lesions noted MDM MDM MDM Narrative Medical decision making narrative: Lab work, urinalysis ordered. Patient given 2 L of IV fluid initially. EKG obtained and Reglan given. Patient has had no further vomiting in the emergency room. Lab Data Attestation: I reviewed the patient's lab results. Labs: Laboratory Results - last 24 hr 10/12/21 10/12/21 10/12/21 02:50 02:50 02:50 WBC 16.4 H RBC 3.85 L Hgb 11.4 L Hct 37.2 MCV 96.6 MCH 29.6 MCHC 30.6 L RDW Std Deviation 49.6 H RDW Coeff of Koki 14.2 Plt Count 441 MPV 10.4 Immature Gran % (Auto) 0.600 Neut % (Auto) 87.7 H Lymph % (Auto) 6.5 L [place] % (Auto) 5.1 Eos % (Auto) 0.0 Baso % (Auto) 0.1 Absolute Neuts (auto) 14.3 H Absolute Lymphs (auto) 1.07 Nucleated RBC % 0 PT 14.6 INR 1.2 APTT 24.4 Sodium 145 Potassium 3.8 Chloride 98 Carbon Dioxide 33.0 H Anion Gap 14 BUN 56 H Creatinine 3.15 H Estim Creat Clear Calc 14.13 Est GFR (MDRD) Af Amer 18 L Est GFR (MDRD) Non-Af 15 L BUN/Creatinine Ratio 17.8 Glucose 477 H* Lactic Acid Calcium 9.4 Total Bilirubin 0.50 Direct Bilirubin 0.11 AST 10 L ALT 15 Alkaline Phosphatase 112 Total Protein 8.0 Albumin 2.8 L Globulin 5.2 H Urine Color Urine Clarity Urine pH Ur Specific [place] Urine Protein Urine Glucose (UA) Urine Ketones Urine Occult Blood Urine Nitrite Urine Bilirubin Urine Urobilinogen Ur Leukocyte Esterase Urine RBC Urine WBC Ur Squamous Epith Cells Urine Bacteria Urine Mucus 10/12/21 10/12/21 02:50 03:40 WBC RBC Hgb Hct MCV MCH MCHC RDW Std Deviation RDW Coeff of Koki Plt Count MPV Immature Gran % (Auto) Neut % (Auto) Lymph % (Auto) [place] % (Auto) Eos % (Auto) Baso % (Auto) Absolute Neuts (auto) Absolute Lymphs (auto) Nucleated RBC % PT INR APTT Sodium Potassium Chloride Carbon Dioxide Anion Gap BUN Creatinine Estim Creat Clear Calc Est GFR (MDRD) Af Amer Est GFR (MDRD) Non-Af BUN/Creatinine Ratio Glucose Lactic Acid 9.4 H* Calcium Total Bilirubin Direct Bilirubin AST ALT Alkaline Phosphatase Total Protein Albumin Globulin Urine Color Yellow Urine Clarity Turbid Urine pH 8.0 Ur Specific [place] 1.015 Urine Protein 100 H Urine Glucose (UA) Normal Urine Ketones 5 H Urine Occult Blood 150 H Urine Nitrite Negative Urine Bilirubin Negative Urine Urobilinogen Normal Ur Leukocyte Esterase 500 H Urine RBC 25-50 SEEN Urine WBC >100 SEEN Ur Squamous Epith Cells 0-5 SEEN Urine Bacteria 4+ Urine Mucus 0 SEEN EKG Initial EKG: Attestation: I personally reviewed and interpreted this EKG as follows: Interpretation: Sinus Tachycardia (Sinus tachycardia at 130. Nonspecific lateral T wave flattening. QTc is 503.) Treatment and Re-Evaluation Comments:: Patient's white blood cell count is elevated at 16.4 with a left shift. Coags unremarkable. Chemistry studies significant for a BUN of 56 and creatinine of 3.15, elevated from her prior values. Glucose is high at 477. Anion gap normal at 14. Lactic acid elevated at 9.4. Urinalysis shows greater than 100 white cells with 4+ bacteria. Patient does have DNR comfort care paperwork signed with her. I sat and spoke with the patient's and daughter at bedside. Patient had a similar presentation in February of last year. At that time she underwent an EGD and surgery for a ureteral stent placement. At this point they are not sure if they would want her to undergo these procedures again. They are in agreement with IV antibiotics and fluids. I advised them that trending her labs would be able to give us a better prognosis than just this single snapshot in the emergency room. They voiced understanding and agreement. I will speak with hospitalist regarding admission. Discharge Plan Dx/Rx/DC Orders Clinical Impression: UTI (urinary tract infection), Severe sepsis Disposition Disposition: Acute Care Hospital [facility]
[2021-10-12] MEDS: 0.9% Normal Saline 1,000 ML 1000 ML IV ×2 (02:56→03:45)
[2021-10-12 03:02] LABS: Absolute Lymphocyte Count 1.07 X10^3/uL (0.83-4.51); Absolute Neutrophil Count 14.3 X10^3/uL (2.0-7.7); Basophil# 0.02 X10^3/uL; Basophil% 0.1 % (0-1); Hematocrit 37.2 % (37-47); Hemoglobin 11.4 g/dL (12.0-15.0); Lymphocyte # 1.07 X10^3/ul (0.83-4.51); Lymphocyte % 6.5 % (19-41); Mean Corp Hgb Conc 30.6 g/dL (32-36); Mean Corpuscular Hgb 29.6 pg (27.0-32.0); Mean Corpuscular Volume 96.6 fL (81-99); Mean Platelet Vol. 10.4 fl (6.2-12.0); Monocyte# 0.84 X10^3/uL; Monocyte% 5.1 % (0-10); NRBC Flagged by Analyzer 0 % (0-5); Neutrophil # 14.32 X10^3/uL (2.7-7.7); Neutrophil % 87.7 % (47-70); Platelet Count 441 K/mm3 (150-450); RBC Distribution Width CV 14.2 % (11.6-14.6); RBC Distribution Width SD 49.6 fl (35.1-43.9); Red Blood Count 3.85 M/mm3 (4.2-5.4); White Blood Count 16.4 K/mm3 (4.4-11.0)
[2021-10-12 03:22] LABS: International Normalized Ratio 1.2; Partial Thromboplast Time 24.4 Seconds (24.1-36.2); Prothrombin Time (Protime)PT. 14.6 SECONDS (11.7-14.9)
[2021-10-12] MEDS: Metoclopramide 10 MG/2 ML Vial 5 MG IV (03:45)
[2021-10-12 04:01] LABS: Mucous, Urine 0 SEEN /hpf (<or=2+)
[2021-10-12 04:05] LABS: Lactic Acid 9.4 mmol/L (0.4-1.9)
[2021-10-12 04:14] LABS: Color, Urine Yellow (Yellow); Glucose, Dipstick Normal (Normal); Ketone-Dipstick 5 mg/dl (Negative); Leukocyte Esterase-Dipstick 500 /ul (Negative); Nitrite-Dipstick Negative (Negative); Occult Blood-Urine 150 /ul (Negative); Protein-Dipstick 100 mg/dl (Negative); Specific Gravity, Urine 1.015 (1.002-1.030); Urine Bilirubin Dipstick Negative (Negative); Urine Clarity Turbid (Clear); Urine Urobilinogen Normal (Normal)
[2021-10-12] MEDS: 0.9% Normal Saline 1,000 ML 999 ML IV (04:20)
[2021-10-12 04:32] LABS: AST(SGOT) 10 U/L (15-37); Alanine Aminotransfer ALT/SGPT 15 U/L (13-56); Albumin, Serum 2.8 g/dL (3.2-5.0); Alkaline Phosphatase 112 U/L (45-117); Anion Gap 14 (5-15); BUN 56 mg/dL (7-18); BUN/Creat Ratio 17.8 RATIO (10-20); Bilirubin, Direct 0.11 mg/dL (0.00-0.30); Calcium,Total 9.4 mg/dL (8.5-10.1); Chloride 98 mmol/L (98-107); Creatinine, Serum 3.15 mg/dL (0.55-1.02); EST Glomerular Filtration Rate 15 mL/min (>60); Est Glom Filt Rate - Afr Amer 18 mL/min (>60); Estimated Creatinine Clearance 14.13 ml/min; Globulin 5.2 g/dL (2.2-4.2); Glucose 477 mg/dL (74-106); Potassium 3.8 mmol/L (3.5-5.1); Sodium Level 145 mmol/L (136-145)
[2021-10-12 05:07] LABS: Bacteria 4+ /hpf (None Seen); Red Blood Cells-Urine 25-50 SEEN /hpf (0-5); Squamous Epithelial Cells - UA 0-5 SEEN /hpf (5-10); White Blood Cells >100 SEEN /hpf (0-5)
[2021-10-12] MEDS: Ceftriaxone 1 GM/50 ML BAG IV (06:00)
--- NOTE | 2021-10-12 06:36 | HP.PCM.HOS_ITS ---
HPI - General General Date of Admission: 10/12/21 HPI Narrative ANNALISE VINCENT, is a 81 F with a significant history of CABG; diabetes mellitus; and blindness who presents and who [facility] presenting to the emergency department with brown vomitus that started 3 days before presentation. Also a day before presentation patient's had a decrease in her mental status. At baseline patient is alert and oriented to self only. History was taken from emergency department doctor and family who was at the bedside. Patient is unable to provide any history. History was therefore l imited to what family could provide. [facility] Medical History (Updated 10/12/21 @ 06:[address] Shubham Ying MD) Anxiety Blindness of both eyes Chest pain Congestive heart failure (CHF) Coronary artery disease Depression Diabetes GERD (gastroesophageal reflux disease) Hypertension Home Medications aspirin 81 mg PO DAILY 02/21/20 [History Last Taken Unknown] brimonidine 1 drp EACH EYE BID 02/21/20 [History Last Taken Unknown] bumetanide 1.5 mg PO DAILY 02/21/20 [History Last Taken Unknown] buspirone 0.5 tab PO BID 02/21/20 [History Last Taken Unknown] cephalexin 500 mg PO BID 02/21/20 [History Last Taken Unknown] insulin lispro 0 unit SUBCUT TID 02/21/20 [History Last Taken Unknown] venlafaxine 75 mg PO DAILY 02/21/20 [History Last Taken Unknown] ascorbic acid (vitamin C) 1,000 mg PO DAILY 02/22/20 [History Last Taken Unknown] atorvastatin 20 mg PO QHS 02/22/20 [History Last Taken Unknown] escitalopram oxalate 10 mg PO QHS 02/22/20 [History Last Taken Unknown] insulin detemir U-100 40 unit SQ QHS 02/22/20 [History Last Taken Unknown] loratadine 10 mg PO DAILY 02/22/20 [History Last Taken Unknown] lorazepam 0.5 mg PO BID 02/22/20 [History Last Taken Unknown] zinc 50 mg PO DAILY 02/22/20 [History Last Taken Unknown] cholecalciferol (vitamin D3) 2,000 iu 03/02/21 [History Last Taken Unknown] cephalexin 500 mg PO Q6H #28 cap 03/05/21 [Rx Last Taken Unknown] metoclopramide HCl 5 mg PO TIDAC #0 tab 03/05/21 [Rx Last Taken Unknown] pantoprazole [Protonix] 40 mg PO BID #60 tab 03/05/21 [Rx Last Taken Unknown] Allergy/AdvReac Type Severity Reaction Status Date / Time Penicillins Allergy Unknown Verified 10/12/21 02:22 Sulfa (Sulfonamide Allergy Unknown Verified 10/12/21 02:22 Antibiotics) unable to obtain Surgical History (Updated 10/12/21 @ 06:[address] Shubham Ying MD) H/O: hysterectomy Social History Smoking Status: Never smoker ROS Review of Systems ROS Unobtainable: due to mental condition Vital Signs Vital Signs Vital Signs: 10/12/21 02:18 10/12/21 05:23 10/12/21 06:27 Temperature 95.5 F L 95.5 F L Temperature Source Temporal Temporal Pulse Rate 128 H 104 H 104 H Respiratory Rate 28 H 34 H 34 H Blood Pressure 100/68 105/52 L 105/52 L Blood Pressure Mean 78 69 69 Pulse Ox 98 95 95 Oxygen Delivery Method Nasal Cannula Nasal Cannula Oxygen Flow Rate (L/min) 2 2 Weight Weight: 101.9 kg Body Mass Index (BMI) 34.1 Physical Exam Narrative Physical exam: General: Well-nourished, well-developed. Head: Normocephalic, atraumatic, no tenderness Eyes: With her eyes closed and her wounds have been open. ENT, no trauma, no rhinorrhea Neck: Nontender, no spinal tenderness, deformities, step-off CVS: Tachycardia. S1-S2 present. No murmur, gallop or rub. Respiratory : clear to auscultation bilaterally, chest wall nontender, no wheezing Abdomen: Soft, nontender, nondistended, normal bowel sounds, no masses : Deferred Back: Nontender, no CVA tenderness, no midline spinal tenderness, deformities, step-offs Extremities: Nontender. No edema or cyanosis. Skin: Normal color, no trauma, abrasions Neuro: Hypoalert. Confused. Psychiatry: Normal mood. Normal affect. Results Lab / Micro Data Result Diagrams: 10/12/21 02:50 10/12/21 02:50 Labs: Laboratory Results - last 24 hr 10/12/21 02:50: WBC 16.4 H, RBC 3.85 L, Hgb 11.4 L, Hct 37.2, MCV 96.6, MCH 29.6, MCHC 30.6 L, RDW Std Deviation 49.6 H, RDW Coeff of Koki 14.2, Plt Count 441, MPV 10.4, Immature Gran % (Auto) 0.600, Neut % (Auto) 87.7 H, Lymph % (Auto) 6.5 L, [place] % (Auto) 5.1, Eos % (Auto) 0.0, Baso % (Auto) 0.1, Absolute Neuts (auto) 14.3 H, Absolute Lymphs (auto) 1.07, Nucleated RBC % 0 10/12/21 02:50: PT 14.6, INR 1.2, APTT 24.4 10/12/21 02:50: Sodium 145, Potassium 3.8, Chloride 98, Carbon Dioxide 33.0 H, Anion Gap 14, BUN 56 H, Creatinine 3.15 H, Estim Creat Clear Calc 14.13, Est GFR (MDRD) Af Amer 18 L, Est GFR (MDRD) Non-Af 15 L, BUN/Creatinine Ratio 17.8, Glucose 477 H*, Calcium 9.4, Total Bilirubin 0.50, Direct Bilirubin 0.11, AST 10 L, ALT 15, Alkaline Phosphatase 112, Total Protein 8.0, Albumin 2.8 L, Globulin 5.2 H 10/12/21 02:50: Lactic Acid 9.4 H* 10/12/21 02:50: Blood Type A POSITIVE, Antibody Screen NEGATIVE 10/12/21 03:40: Urine Color Yellow, Urine Clarity Turbid, Urine pH 8.0, Ur Specific [place] 1.015, Urine Protein 100 H, Urine Glucose (UA) Normal, Urine Ketones 5 H, Urine Occult Blood 150 H, Urine Nitrite Negative, Urine Bilirubin Negative, Urine Urobilinogen Normal, Ur Leukocyte Esterase 500 H, Urine RBC 25- 50 SEEN, Urine WBC >100 SEEN, Ur Squamous Epith Cells 0-5 SEEN, Urine Bacteria 4+, Urine Mucus 0 SEEN Assessment & Plan Assessment/Plan (1) Septic shock: (2) UTI (urinary tract infection): QUALIFIERS: Urinary tract infection type: acute cystitis Hematuria presence: without hematuria Qualified Code(s): N30.00 - Acute cystitis without hematuria (3) Coffee ground emesis: (4) Acute kidney injury: (5) Diabetes mellitus, type 2: QUALIFIERS: Diabetes mellitus jail insulin use: with 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 Diabetes mellitus complication status: with kidney complications Diabetes mellitus complication detail: with chronic kidney disease Chronic kidney disease stage: stage 3 (moderate) Chronic kidney disease stage 3 subtype: stage 3b (GFR 30-44) Qualified Code(s): E11.22 - Type 2 diabetes mellitus with diabetic chronic kidney disease; N18.32 - Chronic kidney disease, stage 3b; Z79.4 - terminal makeup operator (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 Lactic acid of more than 4 more than 4 (9.4) Review of medical department labs showed abnormal urinalysis. Received normal saline bolus at the emergency department. Urine culture and blood culture ordered emergency department. Admit to intensive care unit. Of note at this time family does not want Pressors or any heroic activity. Family just wants antibiotics. Urine culture on 06/04/2021 was remarkable for E. coli sensitive to ceftriaxone. Ceftriaxone ordered. If patient does not turn around family may consider hospice. Admit intensive care unit and consult electrical power engineer. Acute on chronic encephalopathy Likely secondary to UTI We will hold off feed at this time. Speech consult for swallow evaluation. Coffee-ground emesis Hemoglobin is within baseline Protonix drip ordered. Trend H&H. Avoid chemical chemoprophylaxis. Family does not want any endoscopy at this time. Of note on previous admission in February 2021 patient had an EGD with Dr. Dominguez. At that time there was some evide nce of bleeding. RIDGE on chronic kidney disease stage IIIa CKD Likely from Diabetic nephropathy Baseline creatinine of 1.7 Creatinine on admission was 3.15 Gentle IV hydration. Avoid nephrotoxins. Trend BMP. Review of records show that in February 2021 patient had uteroscopy laser lithotripsy of stone and removal of stents Diabetes mellitus Patient with hyperglycemia on presentation Received fluid boluses at the emergency department with improvement in blood glucose. ED doc ordered 10 units of short acting insulin. Accu-Chek every 4 hours of correction scale insulin ordered. Continued. DVT prophylaxis: SCD ordered. CODE STATUS: DNRCC. Charges/Coding Visit Charges Inpatient E&M: 11125 Init Hosp L3
[2021-10-12 06:40] LABS: Bedside Glucose 359 mg/dL (70-110)
[2021-10-12 06:58] LABS: Reflex Lactate? Y
--- NOTE | 2021-10-12 06:58 | SEPSIS_ITS ---
Sepsis Note Physical Exam/Vitals Objective: Temp Pulse Resp BP Pulse Ox 95.5 F L 104 H 34 H 105/52 L 95 10/12/21 06:27 10/12/21 06:27 10/12/21 06:27 10/12/21 06:27 10/12/21 06:27 10/12/21 10/12/21 10/12/21 06:36 03:40 02:50 WBC RBC Hgb Hct MCV MCH MCHC RDW Std Deviation RDW Coeff of Koki Plt Count MPV Immature Gran % (Auto) Neut % (Auto) Lymph % (Auto) [place] % (Auto) Eos % (Auto) Baso % (Auto) Absolute Neuts (auto) Absolute Lymphs (auto) Nucleated RBC % PT INR APTT Sodium Potassium Chloride Carbon Dioxide Anion Gap BUN Creatinine Estim Creat Clear Calc Est GFR (MDRD) Af Amer Est GFR (MDRD) Non-Af BUN/Creatinine Ratio Glucose Lactic Acid Calcium Total Bilirubin Direct Bilirubin AST ALT Alkaline Phosphatase Total Protein Albumin Globulin Urine Color Yellow Urine Clarity Turbid Urine pH 8.0 Ur Specific [place] 1.015 Urine Protein 100 H Urine Glucose (UA) Normal Urine Ketones 5 H Urine Occult Blood 150 H Urine Nitrite Negative Urine Bilirubin Negative Urine Urobilinogen Normal Ur Leukocyte Esterase 500 H Urine RBC 25-50 SEEN Urine WBC >100 SEEN Ur Squamous Epith Cells 0-5 SEEN Urine Bacteria 4+ Urine Mucus 0 SEEN POC Glucose 359 H Blood Type A POSITIVE Antibody Screen NEGATIVE 10/12/21 10/12/21 10/12/21 02:50 02:50 02:50 WBC RBC Hgb Hct MCV MCH MCHC RDW Std Deviation RDW Coeff of Koki Plt Count MPV Immature Gran % (Auto) Neut % (Auto) Lymph % (Auto) [place] % (Auto) Eos % (Auto) Baso % (Auto) Absolute Neuts (auto) Absolute Lymphs (auto) Nucleated RBC % PT 14.6 INR 1.2 APTT 24.4 Sodium 145 Potassium 3.8 Chloride 98 Carbon Dioxide 33.0 H Anion Gap 14 BUN 56 H Creatinine 3.15 H Estim Creat Clear Calc 14.13 Est GFR (MDRD) Af Amer 18 L Est GFR (MDRD) Non-Af 15 L BUN/Creatinine Ratio 17.8 Glucose 477 H* Lactic Acid 9.4 H* Calcium 9.4 Total Bilirubin 0.50 Direct Bilirubin 0.11 AST 10 L ALT 15 Alkaline Phosphatase 112 Total Protein 8.0 Albumin 2.8 L Globulin 5.2 H Urine Color Urine Clarity Urine pH Ur Specific [place] Urine Protein Urine Glucose (UA) Urine Ketones Urine Occult Blood Urine Nitrite Urine Bilirubin Urine Urobilinogen Ur Leukocyte Esterase Urine RBC Urine WBC Ur Squamous Epith Cells Urine Bacteria Urine Mucus POC Glucose Blood Type Antibody Screen 10/12/21 02:50 WBC 16.4 H RBC 3.85 L Hgb 11.4 L Hct 37.2 MCV 96.6 MCH 29.6 MCHC 30.6 L RDW Std Deviation 49.6 H RDW Coeff of Koki 14.2 Plt Count 441 MPV 10.4 Immature Gran % (Auto) 0.600 Neut % (Auto) 87.7 H Lymph % (Auto) 6.5 L [place] % (Auto) 5.1 Eos % (Auto) 0.0 Baso % (Auto) 0.1 Absolute Neuts (auto) 14.3 H Absolute Lymphs (auto) 1.07 Nucleated RBC % 0 PT INR APTT Sodium Potassium Chloride Carbon Dioxide Anion Gap BUN Creatinine Estim Creat Clear Calc Est GFR (MDRD) Af Amer Est GFR (MDRD) Non-Af BUN/Creatinine Ratio Glucose Lactic Acid Calcium Total Bilirubin Direct Bilirubin AST ALT Alkaline Phosphatase Total Protein Albumin Globulin Urine Color Urine Clarity Urine pH Ur Specific [place] Urine Protein Urine Glucose (UA) Urine Ketones Urine Occult Blood Urine Nitrite Urine Bilirubin Urine Urobilinogen Ur Leukocyte Esterase Urine RBC Urine WBC Ur Squamous Epith Cells Urine Bacteria Urine Mucus POC Glucose Blood Type Antibody Screen Attestation Sepsis Attestation: Sepsis re-evaluation was performed
[2021-10-12] MEDS: Insulin Lispro 100 UNIT/ML INSULN.PEN 10 UNIT SC (07:15)
--- NOTE | 2021-10-12 07:23 | PN.HOSP_ITS ---
Objective Data Objective Data Vital Signs: Vital Signs Temp Pulse Resp BP Pulse Ox 95.5 F L 104 H 34 H 105/52 L 95 10/12/21 06:27 10/12/21 06:27 10/12/21 06:27 10/12/21 06:27 10/12/21 06:27 Oxygen Flow Rate (L/min) 2 Oxygen Delivery Method Nasal Cannula Weight: 224 lb 10.417 oz Body Mass Index (BMI) 34.1 Intake & Output: Intake and Output for Last 24 Hours 10/10/21 10/11/21 10/12/21 23:59 23:59 23:59 Intake Total 3426.67 / 3426.67 Balance 3426.67 / 3426.67 Lab / Micro Data Result Diagrams: 10/12/21 02:50 10/12/21 02:50 Labs: Laboratory Results - last 24 hr 10/12/21 02:50: WBC 16.4 H, RBC 3.85 L, Hgb 11.4 L, Hct 37.2, MCV 96.6, MCH 29.6, MCHC 30.6 L, RDW Std Deviation 49.6 H, RDW Coeff of Koki 14.2, Plt Count 441, MPV 10.4, Immature Gran % (Auto) 0.600, Neut % (Auto) 87.7 H, Lymph % (Auto) 6.5 L, [place] % (Auto) 5.1, Eos % (Auto) 0.0, Baso % (Auto) 0.1, Absolute Neuts (auto) 14.3 H, Absolute Lymphs (auto) 1.07, Nucleated RBC % 0 10/12/21 02:50: PT 14.6, INR 1.2, APTT 24.4 10/12/21 02:50: Sodium 145, Potassium 3.8, Chloride 98, Carbon Dioxide 33.0 H, Anion Gap 14, BUN 56 H, Creatinine 3.15 H, Estim Creat Clear Calc 14.13, Est GFR (MDRD) Af Amer 18 L, Est GFR (MDRD) Non-Af 15 L, BUN/Creatinine Ratio 17.8, Glucose 477 H*, Calcium 9.4, Total Bilirubin 0.50, Direct Bilirubin 0.11, AST 10 L, ALT 15, Alkaline Phosphatase 112, Total Protein 8.0, Albumin 2.8 L, Globulin 5.2 H 10/12/21 02:50: Lactic Acid 9.4 H* 10/12/21 02:50: Blood Type A POSITIVE, Antibody Screen NEGATIVE 10/12/21 03:40: Urine Color Yellow, Urine Clarity Turbid, Urine pH 8.0, Ur Specific [place] 1.015, Urine Protein 100 H, Urine Glucose (UA) Normal, Urine Ketones 5 H, Urine Occult Blood 150 H, Urine Nitrite Negative, Urine Bilirubin Negative, Urine Urobilinogen Normal, Ur Leukocyte Esterase 500 H, Urine RBC 25- 50 SEEN, Urine WBC >100 SEEN, Ur Squamous Epith Cells 0-5 SEEN, Urine Bacteria 4+, Urine Mucus 0 SEEN 10/12/21 06:36: POC Glucose 359 H
--- NOTE | 2021-10-12 07:25 | PCM.HOSP.N ---
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 Discussed with her nighttime hospitalist. Patient admitted with hematemesis, coffee-ground emesis for about 4 days from custodial. Was tachycardic, blood pressure low 100/68 on 2 L of oxygen with high lactic acidosis Most probably due to GI bleed. Patient's family as per admitting hospitalist does not want EGD or a scope. Patient is DNR CC. Will consult palliative/hospice care. Patient had 3 L normal saline bolus. Blood pressure latest 127/52, heart rate 108. Patient is nonverbal, incomprehensible sound, does not open eye, semiconscious and unresponsive to verbal command Patient is DNR CC admitted on floor. Abdomen, soft, nontender. Lungs air entry diminished bilaterally. Neuro: Not awake, semiconsult Palliative/hospice care. Orders reviewed Patient has leukocytosis, hypernatremia, hyperchloremia, BUN/creatinine high. Lactic acidosis. Repeat hemoglobin 9.6. Lactic acidosis improving with hydration. On IV ceftriaxone for UTI Patient admitted to PCU as he is DNR CC and family does not want aggressive management Laboratory Results 10/12/21 02:50: WBC 16.4 H, RBC 3.85 L, Hgb 11.4 L, Hct 37.2, MCV 96.6, MCH 29.6, MCHC 30.6 L, RDW Std Deviation 49.6 H, RDW Coeff of Koki 14.2, Plt Count 441, MPV 10.4, Immature Gran % (Auto) 0.600, Neut % (Auto) 87.7 H, Lymph % (Auto) 6.5 L, [place] % (Auto) 5.1, Eos % (Auto) 0.0, Baso % (Auto) 0.1, Absolute Neuts (auto) 14.3 H, Absolute Lymphs (auto) 1.07, Nucleated RBC % 0 10/12/21 02:50: PT 14.6, INR 1.2, APTT 24.4 10/12/21 02:50: Sodium 145, Potassium 3.8, Chloride 98, Carbon Dioxide 33.0 H, Anion Gap 14, BUN 56 H, Creatinine 3.15 H, Estim Creat Clear Calc 14.13, Est GFR (MDRD) Af Amer 18 L, Est GFR (MDRD) Non-Af 15 L, BUN/Creatinine Ratio 17.8, Glucose 477 H*, Calcium 9.4, Total Bilirubin 0.50, Direct Bilirubin 0.11, AST 10 L, ALT 15, Alkaline Phosphatase 112, Total Protein 8.0, Albumin 2.8 L, Globulin 5.2 H 10/12/21 02:50: Lactic Acid 9.4 H* 10/12/21 02:50: Blood Type A POSITIVE, Antibody Screen NEGATIVE 10/12/21 03:40: Urine Color Yellow, Urine Clarity Turbid, Urine pH 8.0, Ur Specific [place] 1.015, Urine Protein 100 H, Urine Glucose (UA) Normal, Urine Ketones 5 H, Urine Occult Blood 150 H, Urine Nitrite Negative, Urine Bilirubin Negative, Urine Urobilinogen Normal, Ur Leukocyte Esterase 500 H, Urine RBC 25-50 SEEN, Urine WBC >100 SEEN, Ur Squamous Epith Cells 0-5 SEEN, Urine Bacteria 4+, Urine Mucus 0 SEEN 10/12/21 06:36: POC Glucose 359 H 10/12/21 07:10: Lactic Acid 4.5 H* 10/12/21 11:23: POC Glucose 335 H 10/12/21 12:11: Hgb 9.6 L, Hct 30.7 L 10/12/21 12:11: Sodium 147 H, Potassium 3.8, Chloride 112 H, Carbon Dioxide 27.0, Anion Gap 8, BUN 63 H, Creatinine 2.85 H, Estim Creat Clear Calc 15.62, Est GFR (MDRD) Af Amer 20 L, Est GFR (MDRD) Non-Af 17 L, BUN/Creatinine Ratio 22.1 H, Glucose 352 H, Calcium 8.1 L 10/12/21 15:17: POC Glucose 330 H
[2021-10-12 07:55] LABS: Lactic Acid 4.5 mmol/L (0.4-1.9)
[2021-10-12] MEDS: 0.9% Normal Saline 1,000 ML 150 ML IV (09:45)
[2021-10-12] MEDS: 0.9% Normal Saline 1,000 ML 75 ML IV ×2 (10:35→12:27)
--- NOTE | 2021-10-12 10:47 | PCS.PANDOC ---
PANDEMIC DOCUMENTATION INITIATED: Date: 05/26/2021 Time: 190
[2021-10-12 11:30] LABS: Bedside Glucose 335 mg/dL (70-110)
[2021-10-12 12:20] LABS: Hematocrit 30.7 % (37-47); Hemoglobin 9.6 g/dL (12.0-15.0)
[2021-10-12] MEDS: Insulin Lispro 100 UNIT/ML INSULN.PEN SC ×3 (12:31→17:59)
[2021-10-12 12:34] LABS: Anion Gap 8 (5-15); BUN 63 mg/dL (7-18); BUN/Creat Ratio 22.1 RATIO (10-20); Calcium,Total 8.1 mg/dL (8.5-10.1); Chloride 112 mmol/L (98-107); Creatinine, Serum 2.85 mg/dL (0.55-1.02); EST Glomerular Filtration Rate 17 mL/min (>60); Est Glom Filt Rate - Afr Amer 20 mL/min (>60); Estimated Creatinine Clearance 15.62 ml/min; Glucose 352 mg/dL (74-106); Potassium 3.8 mmol/L (3.5-5.1); Sodium Level 147 mmol/L (136-145)
[2021-10-12 15:26] LABS: Bedside Glucose 330 mg/dL (70-110)
--- NOTE | 2021-10-12 17:36 | NURSING ---
Report called to Hospice facility nurse for pt to be d/c to inpatient hospice facility.
[2021-10-12 18:06] LABS: Bedside Glucose 343 mg/dL (70-110)
[2021-10-12 18:12] LABS: Hematocrit 32.2 % (37-47); Hemoglobin 9.5 g/dL (12.0-15.0)
--- NOTE | 2021-10-12 19:31 | DS.PCM_ITS ---
Providers Date of Admission: 10/12/21 Date of Discharge: 10/12/21 Primary Care Physician: Dr. Drew Hammonds MD Consultations 10/12/21 15:34 Consult: Hospice / Palliative Care Routine Consulting Provider: [facility] Reason for Consult: unconscious, unresponsive, GI Bleed, poor prgonosis, DNRCC EMERGENT Consult: No MD Notified: Yes Date Notified: 10/12/21 Time Notified: 15:44 Method of Notification: Verbal Reason For Visit: UTI, VOMITING, SEVERE SEPSIS Diagnosis Discharge Diagnosis (1) Septic shock: Status: Acute Code(s): A41.9 - Sepsis, unspecified organism; R65.21 - Severe sepsis with septic shock (2) UTI (urinary tract infection): Status: Acute Code(s): N39.0 - Urinary tract infection, site not specified Qualifiers: Hematuria presence: without hematuria Urinary tract infection type: acute cystitis Qualified Code(s): N30.00 - Acute cystitis without hematuria (3) Coffee ground emesis: Status: Acute Code(s): K92.0 - Hematemesis (4) Acute kidney injury: Status: Acute Code(s): N17.9 - Acute kidney failure, unspecified (5) Diabetes mellitus, type 2: Status: Acute Code(s): E11.9 - Type 2 diabetes mellitus without complications Qualifiers: Chronic kidney disease stage: stage 3 (moderate) Chronic kidney disease stage 3 subtype: stage 3b (GFR 30-44) Diabetes mellitus complication detail: with chronic kidney disease Diabetes mellitus complication status: with kidney complications Diabetes mellitus 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 term 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 insulin use: with chcf use Qualified Code(s): E11.22 - Type 2 diabetes mellitus with diabetic chronic kidney disease; N18.32 - Chronic kidney disease, stage 3b; Z79.4 - [facility] (current) use of insulin Medications at Discharge Home Medications aspirin 81 mg PO DAILY 02/21/20 brimonidine 1 drp EACH EYE BID 02/21/20 bumetanide 1.5 mg PO DAILY 02/21/20 buspirone 0.5 tab PO BID 02/21/20 cephalexin 500 mg PO BID 02/21/20 insulin lispro 0 unit SUBCUT TID 02/21/20 venlafaxine 75 mg PO DAILY 02/21/20 ascorbic acid (vitamin C) 1,000 mg PO DAILY 02/22/20 atorvastatin 20 mg PO QHS 02/22/20 escitalopram oxalate 10 mg PO QHS 02/22/20 insulin detemir U-100 40 unit SQ QHS 02/22/20 loratadine 10 mg PO DAILY 02/22/20 lorazepam 0.5 mg PO BID 02/22/20 zinc 50 mg PO DAILY 02/22/20 cholecalciferol (vitamin D3) 2,000 iu OTHER DAILY 03/02/21 cephalexin 500 mg PO Q6H #28 cap 03/05/21 acetaminophen 650 mg GA Q4H PRN 10/12/21 metoclopramide HCl 5 mg PO TIDAC 10/12/21 pantoprazole [Protonix] 40 mg PO BID 10/12/21 polyethylene glycol 3350 [Miralax] 17 g PO BID 10/12/21 quetiapine [Seroquel] 25 mg PO QHS 10/12/21 Hospital Course Summary of Care Provided Hospital Course: This 81-year-old female with history of coronary artery disease, CABG; diabetes mellitus; and legal blindness was admitted on 10/12/2021 about 6:30 AM from longterm through ER. Patient had brown-colored vomiting/coffee-ground that he started about 3-4 days days prior to ED visit. As per H&P, her baseline was awake and oriented to person only but her mental condition deteriorated a day before admission. I discussed with the nighttime hospitalist colleague. Patient was admitted with a diagnosis of hypertension, tachycardia, high lactic acidosis most probably hypovolemic shock from GI bleed. Patient urine culture on 06/04 was remarkable for E. coli sensitive to ceftriaxone but I think because of high lactic acidosis and shock was due to mixed, predominantly hemorrhagic/hypovolemic shock from mainly GI bleed and partly contribution from E. coli UTI. Patient had total of 3 L normal saline bolus and blood pressure initially recovered to 127/52, 130/61 heart rate 108/min. Family did not want heroic measures and patient is DNR CC and they wanted hospice care therefore patient was admitted on PCU and hospice was consulted. Patient's family as per admitting hospitalist does not want EGD or a scope. Patient has leukocytosis, hypernatremia, hyperchloremia, BUN/creatinine high although mild improvement from admitting BUN/creatinine.Repeat hemoglobin 9.5. Lactic acidosis improving with hydration. On IV ceftriaxone for UTI. urine culture showed E. coli more than 100,000 sensitive to ceftriaxone. Patient was seen by hospice care service. I had talked to the hospice nurse and patient was accepted under the hospice care service. Patient discharged to inpatient hospice care. Physical Exam Narrative The patient was seen and examined on the day of discharge. Family agreed to hospice care General: Unconscious, not awake, withdraws with painful stimulus. HEENT: Eyes closed, pupils sluggish reactive. Oral: Oral mucosa dry. Neck: Supple, No JVD, Negative Carotid Bruits Lungs: Air entry diminished in bilateral lung bases. No crepitation/rhonchi Cardiovascular: Muffled heart sound, sinus rhythm on monitor. No murmurs Abdomen: Bowel Sounds absent, Soft, Non Tender, Non-Distended : No renal angle tenderness. No suprapubic tenderness. Extremities: No edema, Capillary Refill Less than 3 Seconds Skin: No rashes, No breakdown Musculoskeletal: No Tenderness to Palpation of Joints or Extremities Neurological: Unresponsive to verbal stimulus. Nonverbal, flexion withdrawal to painful stimulus. Psych/Mental Status: Unconscious, unresponsive Weight / BMI Weight Weight: 224 lb 10.417 oz Body Mass Index (BMI) 34.1 ABG / Lab / Microbiology Data Result Diagrams: 10/12/21 18:00 10/12/21 12:11 Microbiology: Microbiology 10/12/21 05:35 Blood Culture (Wb) - Anticubital Right Blood Culture - Final No growth in 5 days. 10/12/21 05:35 Blood Culture (Wb) - Right Wrist Blood Culture - Final No growth in 5 days. 10/12/21 03:40 Urine, Catheterized Urine Culture - Final Escherichia coli 10/12/21 15:50 Nasal Secretion SARS-CoV-2 Antigen (Rapid) - Final Meaningful Use Info Meaningful Use Diagnoses (Choose all that apply): None applicable Discharge Plan Admission Admit Date/Time: 10/12/21 06:25 Attending Provider: Dwayne Gold Primary Care Provider: Drew Hammonds Consulting Providers: Alpa Bernstein ; Arnold Figueroa ; Lina Black ; Andreia Dong ; Katie Beck ; Amanda Licona ENDODONTIC ASSISTANT Discharge Orders/Prescriptions Prescriptions: No Action venlafaxine 150 MG capsule 75 mg PO DAILY RF: 0 cephalexin 500 MG capsule 500 mg PO BID RF: 0 brimonidine 1 DROP bottle 1 drp EACH EYE BID RF: 0 aspirin 81 MG tablet,chewable 81 mg PO DAILY RF: 0 bumetanide 1 MG tablet 1.5 mg PO DAILY RF: 0 buspirone 15 MG tablet 0.5 tab PO BID RF: 0 insulin lispro 100 UNIT/ML cartridge 0 unit subcut TID RF: 0 ascorbic acid (vitamin C) 1,000 MG tablet 1,000 mg PO DAILY RF: 0 atorvastatin 20 MG tablet 20 mg PO QHS RF: 0 lorazepam 0.5 MG tablet 0.5 mg PO BID RF: 0 zinc 50 MG tablet 50 mg PO DAILY RF: 0 escitalopram oxalate 5 MG tablet 10 mg PO QHS RF: 0 insulin detemir U-100 100 UNIT/ML solution 40 unit SQ QHS RF: 0 loratadine 10 MG capsule 10 mg PO DAILY RF: 0 cholecalciferol (vitamin D3) 2,000 iu OTHER DAILY RF: 0 cephalexin 500 mg capsule 500 mg PO Q6H Qty: 28 RF: 0 acetaminophen 650 mg Suppository 650 mg GA Q4H PRN (Reason: hyperthermia or pain) RF: 0 quetiapine [Seroquel] 25 mg Tablet 25 mg PO QHS RF: 0 polyethylene glycol 3350 [Miralax] 17 gram/dose Powder 17 g PO BID RF: 0 metoclopramide HCl 5 mg tablet 5 mg PO TIDAC RF: 0 pantoprazole [Protonix] 40 mg tablet,delayed release (DR/EC) 40 mg PO BID RF: 0 Referrals / Follow Up: Drew Hammonds MD [Primary Care Provider] - Disposition Disposition (needs filled in before D/C Order can be placed): Acute [facility] Charges/Coding Visit Charges Inpatient E&M: 99319 Disch Hosp
[2021-10-14 07:16] LABS: Bedside Glucose 315 mg/dL (70-110)
[2021-10-14 07:16] LABS: Bedside Glucose 333 mg/dL (70-110)
== END 2021-10-12 18:30 | disposition short-term general hospital (02) | DRG 871 ==
LOC: ED 05:32 → ICU 07:06 → PCU 09:44
PROVIDERS: Admitting Provider Hospitalist; Emergency Provider Emergency Medicine; PCP Family Medicine; Visit Provider Internal Medicine
DX: A41.9 Sepsis, unspecified organism (principal); R65.21 Severe sepsis with septic shock; G93.41 Metabolic encephalopathy; N17.9 Acute kidney failure, unspecified; I13.0 Hypertensive heart and chronic kidney disease with heart failure and stage 1 through stage 4 chronic kidney disease, or unspecified chronic kidney disease; N30.00 Acute cystitis without hematuria; K92.0 Hematemesis; E11.22 Type 2 diabetes mellitus with diabetic chronic kidney disease; E11.65 Type 2 diabetes mellitus with hyperglycemia; Z79.4 Long term (current) use of insulin; I50.9 Heart failure, unspecified; N18.31 Chronic kidney disease, stage 3a; I12.9 Hypertensive chronic kidney disease with stage 1 through stage 4 chronic kidney disease, or unspecified chronic kidney disease; F41.9 Anxiety disorder, unspecified; K21.9 Gastro-esophageal reflux disease without esophagitis; I25.10 Atherosclerotic heart disease of native coronary artery without angina pectoris; E87.8 Other disorders of electrolyte and fluid balance, not elsewhere classified; H54.7 Unspecified visual loss; B96.20 Unspecified Escherichia coli [E. coli] as the cause of diseases classified elsewhere; Z79.82 Long term (current) use of aspirin; Z79.899 Other long term (current) drug therapy; F32.A Depression, unspecified; Z66 Do not resuscitate; Z87.442 Personal history of urinary calculi; Z87.19 Personal history of other diseases of the digestive system; E66.9 Obesity, unspecified; Z95.1 Presence of aortocoronary bypass graft; Z68.34 Body mass index [BMI] 34.0-34.9, adult
CPT/HCPCS: 36415; 51702; 80048; 80076; 81001; 82962; 83605; 85014; 85018; 85025; 85610; 85730; 86850; 86900; 86901; 87040; 87077; 87086; 87088; 87186; 87426; 93005; 99285; J7030; J7040; A4216